=== PATIENT | female | born 1930 | race Caucasian/White ===

== ENCOUNTER 2016-08-27 14:38 | Emergency (ER) | payer OTHER, MEDICARE ==
[2016-08-27 14:57] VITALS: BMI 21.2
--- NOTE | 2016-08-27 16:04 | PDOC ---
History of Present Illness - General Chief Complaint: Injury Stated Complaint: FALL Time Seen by Provider: 08/27/16 15:08 History Source: Patient Exam Limitations: No Limitations - History of Present Illness Initial Comments: 08/27/16 15:58 86y F hx of dementia, htn, paroxysmal afib, copd, polycythemiavera, anemia, dvt , presents s/p mechanical fall. The patient is an 85 year old female with a significant past medical history of early onset dementia, C. diff, HTN, paroxysmal atrial fibrillation, COPD, polycythemia vera, anemia, DVT, and ileostomy (in [address] Pinon), who presents with nausea and vomiting this morning. Patient states she woke up with chills this morning. She says she had a total of six episodes of vomiting, with the last episode in the ER. Patient says she started to have a runny nose and sore throat yesterday. She describes the abdominal pain as bloating with associated difficulty breathing. Denies flu shot, sick contacts, diaphoresis, chest pain, or fever. PCP: Dr. Jose Diop Past History - Past Medical History Allergies/Adverse Reactions: Allergies Allergy/AdvReac Type Severity Reaction Status Date / Time No Known Drug Allergies Allergy Verified 08/27/16 14:52 Home Medications: Ambulatory Orders Aspirin [ASA -] 81 mg PO DAILY 09/25/15 Bethanechol Chloride 25 mg PO BID 09/25/15 Diazepam [Valium] 5 mg PO DAILY 09/25/15 Gabapentin 0 mg PO BID 09/25/15 Hydroxyurea [Droxia] 200 mg PO DAILY 09/25/15 Lactobacillus Acidophilus [Bacid -] 1 each PO DAILY 09/25/15 Losartan Potassium 25 mg PO DAILY 09/25/15 Metoprolol Succinate [Toprol XL -] 50 mg PO BID 09/25/15 Oxycodone HCl/Acetaminophen [Oxycodone-Acetaminophen 10-325] 1 each PO HS Ranitidine HCl [Zantac] 150 mg PO BID 09/25/15 Anemia: No Asthma: No Cancer: No Cardiac Disorders: Yes (PALPITATIONS, PAFIB) CVA: No COPD: Yes CHF: Yes Dementia: Yes (early) Diabetes: No GI Disorders: Yes (cdiff) Disorders: No HTN: Yes Hypercholesterolemia: No Liver Disease: No Suicide Attempt (Hx): No Seizures: No Thyroid Disease: No - Surgical History Abdominal Surgery: Yes (PARTIAL COLECOMY WITH DIVERTICULOSIS, ILEOSTOMY) Appendectomy: No Cardiac Surgery: No Cholecystectomy: Yes Lung Surgery: Yes (lung biopsy) Neurologic Surgery: No Orthopedic Surgery: Yes (right hip surgery) - Immunization History Td Vaccination: Yes TDAP Vaccination: No Immunization Up to Date: Yes - Psycho/Social/Smoking Cessation Hx Anxiety: No Suicidal Ideation: No Smoking Status: No Smoking History: Former smoker Have you smoked in the past 12 months: No Number of Cigarettes Smoked Daily: 0 If you are a former smoker, when did you quit?: many years ago Information on smoking cessation initiated: No Hx Alcohol Use: No Drug/Substance Use Hx: No Substance Use Type: None Hx Substance Use Treatment: No *Physical Exam - Vital Signs Last Vital Signs Temp Pulse Resp BP Pulse Ox 98.2 F 83 16 181/71 97 08/27/16 14:52 08/27/16 14:52 08/27/16 14:52 08/27/16 14:52 08/27/16 14:52
[2016-08-27] MEDS ORDERED: ACETAMINOPHEN 1000 MG/100 ML VIAL (NON FORMULARY) IVPB ONE (16:53)
[2016-08-27] MEDS ORDERED: DIPHTH,PERTUSS(ACELL),TET 0.5 ML DISP.SYRIN IM ONE (16:53)
--- NOTE | 2016-08-27 17:16 | PDOC ---
History of Present Illness - General History Source: Patient, Family (Daughter), Old Records Exam Limitations: No Limitations - History of Present Illness Initial Comments: 08/27/16 19:18 The patient is an 86 year old female, with a significant past medical history of anemia, HTN, Afib, COPD, polycythemia vera, DVT, C.difficile s/p ileostomy, chronic back pain and early onset dementia, who presents to the emergency department s/p a mechanical fall at approximately 1:30 PM this afternoon. The patient states that she fell while getting up from the couch this afternoon. The patient states that she fell forward onto her knees. She states that she did hit her head when she fell and did lose consciousness but she cannot say how long she was on the floor. However, she states that she remembers all events before and after she fell. After regaining consciousness, she called her daughter who brought her straight to the ED. Upon arrival to the ED, the patient presents with head pain, neck pain, right hip pain, and abrasions to the knees, bilaterally. The patient denies fever, chills, dizziness, shortness of breath, chest pain, nausea or vomiting. Last Tetanus is unknown. Patients daughter is at the bedside. The patient uses a walker to ambulate. Allergies: None reported. Past Surgical History: Partial Colectomy w/ Diverticulosis, Ileostomy, Lung Biopsy, Right Hip Surgery Social History: Former smoker (quit many years ago). Denies alcohol or drug use. PCP: Dr. Diop <Evonne Calloway - Last Filed: 08/27/16 19:30> - General History Source: Patient, Family, Old Records Exam Limitations: No Limitations <Link Haque - Last Filed: 08/27/16 20:19> - General Chief Complaint: Injury Stated Complaint: FALL Time Seen by Provider: 08/27/16 15:08 Past History <Evonne Calloway - Last Filed: 08/27/16 19:30> - Past Medical History Anemia: No Asthma: No Cancer: No Cardiac Disorders: Yes (PALPITATIONS, PAFIB) CVA: No COPD: Yes CHF: Yes Dementia: Yes (early) Diabetes: No GI Disorders: Yes (cdiff) Disorders: No HTN: Yes Hypercholesterolemia: No Liver Disease: No Suicide Attempt (Hx): No Seizures: No Thyroid Disease: No - Surgical History Abdominal Surgery: Yes (PARTIAL COLECOMY WITH DIVERTICULOSIS, ILEOSTOMY) Appendectomy: No Cardiac Surgery: No Cholecystectomy: Yes Lung Surgery: Yes (lung biopsy) Neurologic Surgery: No Orthopedic Surgery: Yes (right hip surgery) - Immunization History Td Vaccination: Yes TDAP Vaccination: No Immunization Up to Date: Yes - Psycho/Social/Smoking Cessation Hx Anxiety: No Suicidal Ideation: No Smoking Status: No Smoking History: Former smoker Have you smoked in the past 12 months: No Number of Cigarettes Smoked Daily: 0 If you are a former smoker, when did you quit?: many years ago Information on smoking cessation initiated: No Hx Alcohol Use: No Drug/Substance Use Hx: No Substance Use Type: None Hx Substance Use Treatment: No <Link Haque - Last Filed: 08/27/16 20:19> - Past Medical History Allergies/Adverse Reactions: Allergies Allergy/AdvReac Type Severity Reaction Status Date / Time No Known Drug Allergies Allergy Verified 08/27/16 14:52 Home Medications: Ambulatory Orders Aspirin [ASA -] 81 mg PO ASDIR 08/27/16 Bethanechol Chloride 25 mg PO BID 08/27/16 Diazepam [Valium] 5 mg PO HS 08/27/16 Lactobacillus Acidophilus [Bacid -] 1 each PO BID 08/27/16 Metoprolol Tartrate 50 mg PO BID 08/27/16 Oxycodone HCl 5 mg PO HS 08/27/16 Review of Systems - Review of Systems Able to Perform ROS?: Yes Comments:: 08/27/16 19:19 GENERAL/CONSTITUTIONAL: No fever or chills. No weakness. HEAD, EYES, EARS, NOSE AND THROAT: No change in vision. No ear pain or discharge. No sore throat. CARDIOVASCULAR: No chest pain or shortness of breath. RESPIRATORY: No cough, wheezing, or hemoptysis. GASTROINTESTINAL: No nausea, vomiting, diarrhea or constipation. GENITOURINARY: No dysuria, frequency, or change in urination. MUSCULOSKELETAL: +Head pain, neck pain, right hip pain. No muscle swelling or pain. No back pain. SKIN: +Bilateral knee abrasions/skin tears. No rash. NEUROLOGIC: No headache, vertigo, loss of consciousness, or change in strength/ sensation. ENDOCRINE: No increased thirst. No abnormal weight change. HEMATOLOGIC/LYMPHATIC: No anemia, easy bleeding, or history of blood clots. ALLERGIC/IMMUNOLOGIC: No hives or skin allergy. <Evonne Calloway - Last Filed: 08/27/16 19:30> *Physical Exam - Vital Signs Last Vital Signs Temp Pulse Resp BP Pulse Ox 98.2 F 83 16 181/71 97 08/27/16 14:52 08/27/16 14:52 08/27/16 14:52 08/27/16 14:52 08/27/16 14:52 - Physical Exam Comments: 08/27/16 19:26 GENERAL: Awake, alert, and fully oriented, in no acute distress. HEAD: No signs of trauma. EYES: PERRLA, EOMI, sclera anicteric, conjunctiva clear. ENT: Auricles normal inspection, hearing grossly normal, nares patent, oropharynx clear without exudates. Moist mucosa. NECK: C6 tenderness on palpation, no step offs. Normal ROM, supple, no lymphadenopathy, JVD, or masses. LUNGS: Breath sounds equal, clear to auscultation bilaterally. No wheezes, and no crackles. HEART: Regular rate and rhythm, normal S1 and S2, no murmurs, rubs or gallops. ABDOMEN: Ostomy present in the RLQ, mildly tender. Soft, normoactive bowel sounds. No guarding, no rebound. No masses. EXTREMITIES: Right hip tenderness, but can internally and externally rotate. DP pulses intact. Normal range of motion, no edema. No clubbing or cyanosis. No cords, no erythema. NEUROLOGICAL: Cranial nerves II through XII intact. Strength is 5/5 in both upper and lower extremities bilaterally. Sensations intact throughout. Unremarkable cerebellar signs. Normal speech, gait is deferred. SKIN: Significant abrasions of the knees, bilaterally. Right knee, there is an 8 cm x 10 cm large skin tear. Left knee, there is a large abrasion with a skin tear, approximately 8 cm x 8 cm which extends into subcutaneous fat but no tendon exposure. Warm, dry, normal turgor. <Evonne Calloway - Last Filed: 08/27/16 19:30> - Vital Signs Last Vital Signs Temp Pulse Resp BP Pulse Ox 98.2 F 83 16 181/71 97 08/27/16 14:52 08/27/16 14:52 08/27/16 14:52 08/27/16 14:52 08/27/16 14:52 <Link Haque - Last Filed: 08/27/16 20:19> Heart Score/ECG Review #1 ECG reviewed & interpreted by me at: 16:45 08/27/16 17:43 NSR 86 with 1st degree AV block 200 msec, normal axis, no std/juana, mildly peaked T waves V3-V6, QTC 409 msec <Link Haque - Last Filed: 08/27/16 20:19> ED Treatment Course - LABORATORY CBC & Chemistry Diagram: 08/27/16 17:03 08/27/16 17:03 - ADDITIONAL ORDERS Additional order review: 08/27/16 17:03 RBC 4.01 D MCV 111.2 H MCHC 31.5 L RDW 15.2 MPV 9.8 D Neutrophils % 81.4 Lymphocytes % 9.1 D Monocytes % 5.9 Eosinophils % 2.2 Basophils % 1.4 <Evonne Calloway - Last Filed: 08/27/16 19:30> - LABORATORY CBC & Chemistry Diagram: 08/27/16 17:03 08/27/16 17:03 - RADIOLOGY Radiology Studies Ordered: Category Date Time Status ABDOMEN & PELVIS CT W/O CONTR [CT] Stat CT Scan 08/27/16 16:[address] W/O CONTR [CT] Stat CT Scan 08/27/16 16:[address] WITHOUT CONTRAST [CT] Stat CT Scan 08/27/16 16:53 Ordered KNEE 3 POS-LEFT [RAD] Stat Radiology 08/27/16 16:53 Ordered KNEE 3 POS-RIGHT [RAD] Stat Radiology 08/27/16 16:53 Ordered <Link Haque - Last Filed: 08/27/16 20:19> Medical Decision Making - Medical Decision Making 08/27/16 19:30 EXAM: RAD/ KNEE 3 POS-LEFT ; RAD/KNEE 3 POS-RIGHT Reviewed By: Dr. Omar Kulkarni IMPRESSION: Moderate degenerative arthritis with no fracture or acute bone or joint abnormalities. EXAM: CT/HEAD CT WITHOUT CONTRAST Reviewed By: Dr. Omar Kulkarni IMPRESSION: No evidence of acute intracranial pathology. EXAM: CT/CERVICAL SPINE CT W/O CONTRAST Reviewed By: Dr. Omar Kulkarni IMPRESSION: Moderately severe degenerative arthritis with no fracture or acute pathology. EXAM: CT/ABDOMEN & PELVIS CT W/O CONTRAST Reviewed By: Dr. Omar Kulkarni IMPRESSION: Limited study but no evidence of acute pathology within the abdomen or pelvis. <Evonne Calloway - Last Filed: 08/27/16 19:30> - Medical Decision Making 08/27/16 17:16 A portion of this note was documented by scribe services under my direction. I have reviewed the details of the note, within reason, and agree with the documentation with the following case summary and management plan written by me. Patient treated in the ED. Nursing notes are reviewed and incorporated into the medical decision-making. Vital signs reviewed. Peripheral IV access obtained by the nurse, laboratory studies are drawn and sent, reviewed and interpreted by myself. Vital Signs Temp Pulse Resp BP Pulse Ox 98.2 F 83 16 181/71 97 08/27/16 14:52 08/27/16 14:52 08/27/16 14:52 08/27/16 14:52 08/27/16 14:52 86 year old female with past medical history of early onset dementia, C. difficile status post ileostomy, hypertension, atrial fibrillation, COPD, polycythemia vera, anemia, DVT, right hip pins presents to the emergency department for mechanical fall. The patient was attempting to get up from the couch but fell onto her knees and hit her head. She had a brief loss of consciousness and complains about cervical spine and posterior head pain. Denies any nausea or vomiting. She takes baby aspirin twice a week. Patient has sustained a significant amount of abrasion secondary to carpet on the bilateral knees. She will need skin tears to be debrided and potentially sutures in the left knee. We'll update her tetanus. We'll perform a CAT scan the head and cervical spine as she fails Hait[place] head CT and Nexus criteria. We'll obtain bilateral knee x-rays. The patient is complain about right hip pain though she can internally and externally rotate. She is neurovascularly intact. She also has pain around her ostomy site. We'll obtain a dry abdomen pelvis CAT scan to look for underlying injuries and bilateral knee x-rays. 08/27/16 20:18 CBC, BMP 08/27/16 17:03 08/27/16 17:03 CMP Sodium Cancelled 08/27/16 17:03 Potassium Cancelled 08/27/16 17:03 Chloride Cancelled 08/27/16 17:03 Carbon Dioxide Cancelled 08/27/16 17:03 Anion Gap Cancelled 08/27/16 17:03 BUN Cancelled 08/27/16 17:03 Creatinine Cancelled 08/27/16 17:03 Creat Clearance w eGFR Cancelled 08/27/16 17:03 Random Glucose Cancelled 08/27/16 17:03 Calcium Cancelled 08/27/16 17:03 Total Bilirubin Cancelled 08/27/16 17:03 AST Cancelled 08/27/16 17:03 ALT Cancelled 08/27/16 17:03 Alkaline Phosphatase Cancelled 08/27/16 17:03 Total Protein Cancelled 08/27/16 17:03 Albumin Cancelled 08/27/16 17:03 Urine Test Results Urine Color Colorless 08/27/16 19:09 Urine Appearance Clear 08/27/16 19:09 Urine pH 5.0 (5.0-8.0) 08/27/16 19:09 Ur Specific [place] 1.006 (1.001-1.035) 08/27/16 19:09 Urine Protein Negative (NEGATIVE) 08/27/16 19:09 Urine Glucose (UA) Negative (NEGATIVE) 08/27/16 19:09 Urine Ketones Negative (NEGATIVE) 08/27/16 19:09 Urine Blood Negative (NEGATIVE) 08/27/16 19:09 Urine Nitrite Negative (NEGATIVE) 08/27/16 19:09 Urine Bilirubin Negative (NEGATIVE) 08/27/16 19:09 Ur Leukocyte Esterase Negative (NEGATIVE) 08/27/16 19:09 CT and xrays reviewed. NO acute findings. The wound was irrigated extensively. There were skin tears that were excised given that they could not be sutured. Bacitracin was applied and covered with Xeroform and with Kerlix. Wound discharge care was given to the daughter. I instructed the patient that if she develops any fever, redness or signs of infection, that she is to return to the ER immediately. I advised him to follow- up with her primary care doctor in 2 days for wound check. Patient verbalizes understanding agrees with plan. I discussed the physical exam findings, ancillary test results and final diagnoses with the patient. I answered all of the patient's questions. The patient was satisfied with the care received and felt comfortable with the discharge plan and treatment plan. The patient will call their primary care physician within 24 hours to arrange follow-up and will return to the Emergency Department with any new, persistant or worsening symptoms. <Link Haque - Last Filed: 08/27/16 20:19> *DC/Admit/Observation/Transfer - Attestations Scribe Attestion: 08/27/16 17:59 Documentation prepared by Evonne Calloway, acting as biomedical equipment specialist for Link Haque MD. <Evonne Calloway - Last Filed: 08/27/16 19:30> - Discharge Dispostion Admit: No <Link Haque - Last Filed: 08/27/16 20:19> Diagnosis at time of Disposition: Fall Qualifiers: Encounter type: initial encounter Qualified Code(s): W19.XXXA - Unspecified fall, initial encounter - Discharge Dispostion Disposition: HOME Condition at time of disposition: Stable - Referrals Referrals: Jose Diop MD [Primary Care Provider] - - Patient Instructions Printed Discharge Instructions: How to Prevent Falls, DI for Abrasion Additional Instructions: Please apply a thin layer of bacitracin, and cover with xeroform (petroleum based gauze) and wrap with kerlex. Elevate the legs as much as you can to help with the swelling. Take 650 mg tylenol every 4 hours as needed for pain. If you notice any redness, pus, or fever, please return to the ER for further evaluaiton. Please see Dr. Diop this Tuesday.
[2016-08-27 17:45] LABS: BASOPHIL 1.4 % (0-2.0); EOSINOPHIL 2.2 % (0-4.5); MCHC 31.5 g/dl (32.0-36.0); MEAN CELL VOLUME 111.2 fl (80-96); MEAN PLT VOLUME 9.8 fl (7.5-11.1); NEUTROPHILS 81.4 % (42.8-82.8); PLATELET COUNT 201 K/MM3 (134-434); RDW 15.2 % (11.6-15.6); WHITE BLOOD COUNT 9.8 K/mm3 (4.0-10.0)
[2016-08-27 18:21] LABS: INR 0.96 (0.82-1.09); PROTHROMBIN TIME (PATIENT) 10.5 SEC (9.98-11.88)
[2016-08-27 19:33] LABS: URINE APPEARANCE CLEAR; URINE BILIRUBIN NEGATIVE (NEGATIVE); URINE BLOOD NEGATIVE (NEGATIVE); URINE COLOR COLORLESS; URINE GLUCOSE (UA) NEGATIVE (NEGATIVE); URINE KETONE NEGATIVE (NEGATIVE); URINE LEUK ESTERASE NEGATIVE (NEGATIVE); URINE NITRITE NEGATIVE (NEGATIVE); URINE PROTEIN NEGATIVE (NEGATIVE); URINE UROBILINOGEN NEGATIVE E.U./dl (0.2-1.0)
[2016-08-27 19:44] LABS: ANISOCYTOSIS 3+; PLATELET COMMENT2 NO CLOTTING DETECTED; PLATELET COMMENT3 FEW LARGE PLTS; PLATELET ESTIMATE ADEQUATE (NORMAL)
[2016-08-27 19:54] VITALS: BP 143/59; PULSE 90; TEMP 98.1
--- NOTE | 2016-08-28 09:28 | EKG ---
Test Reason : Blood Pressure : / mmHG Vent. Rate : 086 BPM Atrial Rate : 086 BPM P-R Int : 200 ms QRS Dur : 074 ms QT Int : 342 ms P-R-T Axes : 078 057 065 degrees QTc Int : 409 ms NORMAL SINUS RHYTHM PEAKED T WAVES, clinical correlation required WHEN COMPARED WITH ECG OF 25-SEP-2015 14:12, NO SIGNIFICANT CHANGE WAS FOUND Confirmed by MELANIE NAVA MD ([id number]) on 08/28/2016 9:27:53 AM Referred By: Confirmed By:MELANIE NAVA MD
== END 2016-08-27 20:57 | disposition home or self-care (01) ==
LOC: JER 14:38
PROC: 3E033NZ Introduction of Analgesics, Hypnotics, Sedatives into Peripheral Vein, Percutaneous Approach (ICD-10-PCS; principal; 2016-08-27)
PROC: 3E0234Z Introduction of Serum, Toxoid and Vaccine into Muscle, Percutaneous Approach (ICD-10-PCS; 2016-08-27)
DX: Z04.3 Encounter for examination and observation following other accident (principal); W18.39XA Other fall on same level, initial encounter; Y93.89 Activity, other specified; Y92.008 Other place in unspecified non-institutional (private) residence as the place of occurrence of the external cause; I10 Essential (primary) hypertension; J44.9 Chronic obstructive pulmonary disease, unspecified; D45 Polycythemia vera; I48.91 Unspecified atrial fibrillation
CPT/HCPCS: 36415; 70450-TC; 72125-TC; 73562-TC-LT; 73562-TC-RT; 74176-TC; 81003; 85025; 85610; 90471; 90715; 93005; 93010; 96374; 99284-25

== ENCOUNTER 2017-01-03 17:26 | Emergency (ER) | payer OTHER, MEDICARE ==
[2017-01-03 18:29] VITALS: BP 200/73; PULSE 89; TEMP 98; BMI 21.2
[2017-01-03] MEDS ORDERED: oxyCODONE HCL 5 MG TABLET PO ONE (19:29)
[2017-01-03] MEDS ORDERED: oxyCODONE HCL 5 MG TABLET ONE (19:33)
--- NOTE | 2017-01-03 19:35 | PDOC ---
History of Present Illness - General History Source: Patient, Family, Old Records Exam Limitations: No Limitations <Link Haque - Last Filed: 01/03/17 19:35> - General History Source: Patient Exam Limitations: No Limitations - History of Present Illness Initial Comments: 01/03/17 19:38 The patient is an 86 year old female with a significant past medical history of chronic back pain, anemia, HTN, afib, COPD, polycythemia vera, DVT, and C. diff s/p ileostomy, who presents to the ER with progressively worsening back pain. Patient states she takes one 5mg of oxycodone at night for back pain. Patient reports that she has recently had worse generalized back pain, with onset in the morning and persisting throughout the day. Patient rates the back pain at 7/ 10 on interview. Patient says she also had one episode of vomiting today. As per daughter, patient alerted EMS today when she was alone. Patient previously used lidoderm patches and had steroid injections for back pain, with incomplete relief of symptoms. Patient reports her next appointment with Dr. Diop is on . Denies any exacerbating or alleviating factors Denies fever, chills Denies hematemesis Denies weakness Denies trauma PCP: Dr. Diop <Patti Bazzi - Last Filed: 01/03/17 19:41> - General Chief Complaint: Back Pain Stated Complaint: BACK PAIN Time Seen by Provider: 01/03/17 19:11 Past History - Past Medical History Anemia: No Asthma: No Cancer: No Cardiac Disorders: Yes (PALPITATIONS, PAFIB) CVA: No COPD: Yes CHF: Yes Dementia: Yes (early) Diabetes: No GI Disorders: Yes (cdiff) Disorders: No HTN: Yes Hypercholesterolemia: No Liver Disease: No Suicide Attempt (Hx): No Seizures: No Thyroid Disease: No - Surgical History Abdominal Surgery: Yes (PARTIAL COLECOMY WITH DIVERTICULOSIS, ILEOSTOMY) Appendectomy: No Cardiac Surgery: No Cholecystectomy: Yes Lung Surgery: Yes (lung biopsy) Neurologic Surgery: No Orthopedic Surgery: Yes (right hip surgery) - Immunization History Td Vaccination: Yes TDAP Vaccination: No Immunization Up to Date: Yes - Psycho/Social/Smoking Cessation Hx Anxiety: No Suicidal Ideation: No Smoking Status: No Smoking History: Former smoker Have you smoked in the past 12 months: No Number of Cigarettes Smoked Daily: 0 If you are a former smoker, when did you quit?: many years ago Information on smoking cessation initiated: No Hx Alcohol Use: No Drug/Substance Use Hx: No Substance Use Type: None Hx Substance Use Treatment: No <Link Haque - Last Filed: 01/03/17 19:35> <Patti Bazzi - Last Filed: 01/03/17 19:41> - Past Medical History Allergies/Adverse Reactions: Allergies Allergy/AdvReac Type Severity Reaction Status Date / Time No Known Drug Allergies Allergy Verified 01/03/17 18:01 Home Medications: Ambulatory Orders Aspirin [ASA -] 81 mg PO ASDIR 08/27/16 Bethanechol Chloride 25 mg PO BID 08/27/16 Diazepam [Valium] 5 mg PO HS 08/27/16 Lactobacillus Acidophilus [Bacid -] 1 each PO BID 08/27/16 Metoprolol Tartrate 50 mg PO BID 08/27/16 Oxycodone HCl 5 mg PO HS 08/27/16 Oxycodone HCl 5 mg PO BID PRN #10 tablet MDD 2 01/03/17 Review of Systems - Review of Systems Able to Perform ROS?: Yes Comments:: 01/03/17 19:38 GENERAL/CONSTITUTIONAL: No fever or chills. No weakness. HEAD, EYES, EARS, NOSE AND THROAT: No change in vision. No ear pain or discharge. No sore throat. CARDIOVASCULAR: No chest pain or shortness of breath. RESPIRATORY: No cough, wheezing, or hemoptysis. GASTROINTESTINAL: (+) vomiting. No diarrhea or constipation. GENITOURINARY: No dysuria, frequency, or change in urination. MUSCULOSKELETAL: (+) back pain. No joint or muscle swelling or pain. No neck pain. SKIN: No rash NEUROLOGIC: No headache, vertigo, loss of consciousness, or change in strength/ sensation. ENDOCRINE: No increased thirst. No abnormal weight change. HEMATOLOGIC/LYMPHATIC: No anemia, easy bleeding, or history of blood clots. ALLERGIC/IMMUNOLOGIC: No hives or skin allergy. <Patti Bazzi - Last Filed: 01/03/17 19:41> *Physical Exam - Vital Signs Last Vital Signs Temp Pulse Resp BP Pulse Ox 98 F 89 18 200/73 97 01/03/17 17:55 01/03/17 17:55 01/03/17 17:55 01/03/17 17:55 01/03/17 17:55 <Link Haque - Last Filed: 01/03/17 19:35> - Vital Signs Last Vital Signs Temp Pulse Resp BP Pulse Ox 98 F 89 18 200/73 97 01/03/17 17:55 01/03/17 17:55 01/03/17 17:55 01/03/17 17:55 01/03/17 17:55 - Physical Exam Comments: 01/03/17 19:38 GENERAL: Awake, alert, and fully oriented, in no acute distress HEAD: No signs of trauma EYES: PERRLA, EOMI, sclera anicteric, conjunctiva clear ENT: Auricles normal inspection, hearing grossly normal, nares patent, oropharynx clear without exudates. Moist mucosa NECK: Normal ROM, supple, no lymphadenopathy, JVD, or masses LUNGS: Breath sounds equal, clear to auscultation bilaterally. No wheezes, and no crackles HEART: Regular rate and rhythm, normal S1 and S2, no murmurs, rubs or gallops ABDOMEN: Ileostomy bag on the abdomen. Soft, nontender, normoactive bowel sounds. No guarding, no rebound. No masses EXTREMITIES: Chronic back pain. Normal range of motion, no edema. No clubbing or cyanosis. No cords, erythema, or tenderness NEUROLOGICAL: Cranial nerves II through XII grossly intact. Normal speech, normal gait SKIN: Warm, Dry, normal turgor, no rashes or lesions noted. <Uts,Patti - Last Filed: 01/03/17 19:41> ED Treatment Course - Medications Given in the ED: ED Medications Discontinued Medications Generic Name Dose Route Start Last Admin Trade Name Freq PRN Reason Stop Dose Admin Oxycodone HCl 5 mg 01/03/17 19:29 01/03/17 19:36 Roxicodone - PO 01/03/17 19:30 Not Given ONCE ONE <Uts,Patti - Last Filed: 01/03/17 19:41> Medical Decision Making - Medical Decision Making 01/03/17 19:32 A portion of this note was documented by scribe services under my direction. I have reviewed the details of the note, within reason, and agree with the documentation with the following case summary and management plan written by me. Patient treated in the ED. Nursing notes are reviewed and incorporated into the medical decision-making. Vital signs reviewed. Peripheral IV access obtained by the nurse, laboratory studies are drawn and sent, reviewed and interpreted by myself. Vital Signs Temp Pulse Resp BP Pulse Ox 98 F 89 18 200/73 97 01/03/17 17:55 01/03/17 17:55 01/03/17 17:55 01/03/17 17:55 01/03/17 17:55 86 ear old female with past medical history of anemia, hypertension, atrial fibrillation, COPD, positive air, DVT, C. difficile status post ileostomy, chronic back pain, early onset dementia presents with back pain. Patient has chronic back pain. She was home alone and was scared and called 911 because of her back pain which he typically takes oxycodone and acetaminophen at nighttime. Patient's daughter was on home surgical 911. This is her chronic back pain. Last week, patient did a similar incident where the patient's daughter was not at home and she called [place] police department. Patient reports that this is likely like her prior back pain. Denies other symptoms. She has appointment with Dr. Diop next week. We'll discharge with a small prescription of oxycodone. Patient's daughter will bring the patient home. Return precautions given. Discharge diagnosis: Chronic back pain I discussed the physical exam findings, ancillary test results and final diagnoses with the patient. I answered all of the patient's questions. The patient was satisfied with the care received and felt comfortable with the discharge plan and treatment plan. The patient will call their primary care physician within 24 hours to arrange follow-up and will return to the Emergency Department with any new, persistant or worsening symptoms. <Link Haque - Last Filed: 01/03/17 19:35> *DC/Admit/Observation/Transfer - Discharge Dispostion Admit: No <Link Haque - Last Filed: 01/03/17 19:35> - Attestations Scribe Attestion: 01/03/17 19:39 Documentation prepared by Patti Bazzi, acting as medical secretary for Link Haque MD. <Patti Bazzi - Last Filed: 01/03/17 19:41> Diagnosis at time of Disposition: Chronic back pain Qualifiers: Back pain location: back pain in unspecified location Back pain laterality: unspecified Qualified Code(s): M54.9 - Dorsalgia, unspecified - Discharge Dispostion Disposition: HOME Condition at time of disposition: Stable - Prescriptions Prescriptions: Oxycodone HCl 5 mg PO BID PRN #10 tablet MDD 2 PRN Reason: Back Pain - Referrals Referrals: Jose Diop MD [Primary Care Provider] - - Patient Instructions Printed Discharge Instructions: Managing Chronic Low Back Pain, Back Pain ( Alternative Therapy) Additional Instructions: I have written a prescription of oxycodone for you at the pharmacy. Please take it as needed. Follow up with DR. Diop.
== END 2017-01-03 19:42 | disposition home or self-care (01) ==
LOC: JER 17:26
DX: M54.89 Other dorsalgia (principal); G89.29 Other chronic pain; R00.2 Palpitations; I48.0 Paroxysmal atrial fibrillation; Z79.01 Long term (current) use of anticoagulants; I50.9 Heart failure, unspecified; I10 Essential (primary) hypertension; J44.9 Chronic obstructive pulmonary disease, unspecified; Z93.2 Ileostomy status; D45 Polycythemia vera; Z86.718 Personal history of other venous thrombosis and embolism; Z86.19 Personal history of other infectious and parasitic diseases
CPT/HCPCS: 99281-25

== ENCOUNTER 2017-05-18 16:53 | Observation (INO) | payer OTHER, MEDICARE ==
--- NOTE | 2017-05-18 17:01 | PDOC ---
History of Present Illness - General Chief Complaint: Lightheaded Stated Complaint: RECTAL PAIN Time Seen by Provider: 05/18/17 16:58 History Source: Patient Exam Limitations: Dementia - History of Present Illness Initial Comments: 05/18/17 17:02 The patient is an 86 year old female with a significant past medical history of chronic back pain, anemia, HTN, afib, COPD, polycythemia vera, DVT, and C. diff s/p ileostomy, who presents to the ER with confusion, rectal discomfort and back pain. Also complains of pain on urination. No abd pain, hematuria, hematochezia, abdominal pain. 05/18/17 18:56 05/18/17 19:04 Past History - Past Medical History Allergies/Adverse Reactions: Allergies Allergy/AdvReac Type Severity Reaction Status Date / Time No Known Drug Allergies Allergy Verified 05/18/17 19:10 Home Medications: Ambulatory Orders Unobtainable [Unobtainable] 05/18/17 Anemia: No Asthma: No Cancer: No Cardiac Disorders: Yes (PALPITATIONS, PAFIB) CVA: No COPD: Yes CHF: Yes Dementia: Yes (early) Diabetes: No GI Disorders: Yes (cdiff) Disorders: No HTN: Yes Hypercholesterolemia: No Liver Disease: No Seizures: No Thyroid Disease: No - Surgical History Abdominal Surgery: Yes (PARTIAL COLECOMY WITH DIVERTICULOSIS, ILEOSTOMY) Appendectomy: No Cardiac Surgery: No Cholecystectomy: Yes Lung Surgery: Yes (lung biopsy) Neurologic Surgery: No Orthopedic Surgery: Yes (right hip surgery) - Immunization History Td Vaccination: Yes TDAP Vaccination: No Immunization Up to Date: Yes - Suicide/Smoking/Psychosocial Hx Smoking Status: No Smoking History: Former smoker Have you smoked in the past 12 months: No Number of Cigarettes Smoked Daily: 0 If you are a former smoker, when did you quit?: many years ago Information on smoking cessation initiated: No Hx Alcohol Use: No Drug/Substance Use Hx: No Substance Use Type: None Hx Substance Use Treatment: No Review of Systems - Review of Systems Able to Perform ROS?: Yes (despite delium) Is the patient limited Hungarian proficient: No Constitutional: Yes: Weakness HEENTM: No: Symptoms Reported Respiratory: No: Symptoms reported Cardiac (ROS): No: Symptoms Reported ABD/GI: Yes: Constipated, Other (rectal discomfort) : Yes: Burning, Dysuria Musculoskeletal: Yes: Back Pain *Physical Exam - Vital Signs Last Vital Signs Temp Pulse Resp BP Pulse Ox 98.7 F 79 20 188/71 97 05/18/17 16:57 05/18/17 16:57 05/18/17 16:57 05/18/17 16:57 05/18/17 16:57 - Physical Exam General Appearance: Yes: Thin. No: Apparent Distress HEENT: positive: EOMI, VIRGILIO, Normal ENT Inspection Neck: positive: Trachea midline. negative: Tender Respiratory/Chest: positive: Lungs Clear, Normal Breath Sounds. negative: Chest Tender Cardiovascular: positive: Regular Rhythm, Regular Rate, S1, S2 Gastrointestinal/Abdominal: positive: Other (colostomy bag, some greenish/ brownish stools) Musculoskeletal: positive: Normal Inspection, Other (Surgical Scar on right mid to low back along rib) Integumentary: positive: Diaphoresis, Other. negative: Moist Neurologic: positive: Other (patient seems altered, dementia vs delirium). negative: Fully Oriented ED Treatment Course - LABORATORY CBC & Chemistry Diagram: 05/18/17 17:30 05/18/17 17:30 Medical Decision Making - Medical Decision Making 05/18/17 19:04 The patient is an 86 year old female with a significant past medical history of chronic back pain, anemia, HTN, afib, COPD, polycythemia vera, DVT, and C. diff s/p ileostomy, who presents to the ER with confusion, rectal discomfort and back pain. Altered mental status + diaphoresis + complains of dysuria + old age + inspiratory discomfort + tachycardia Suspecting infectious process: Pulmomnary embolism UTI vs Pneumonia.vs sepsis labs and UA pending. CXR pending CTA pending 05/18/17 19:17 Patient signed out to Dr. Rousseau *DC/Admit/Observation/Transfer Diagnosis at time of Disposition: Altered mental status
[2017-05-18 17:42] LABS: BASOPHIL 1.4 % (0-2.0); EOSINOPHIL 2.1 % (0-4.5); MCH 34.9 pg (25.7-33.7); MEAN CELL VOLUME 109.3 fl (80-96); MEAN PLT VOLUME 8.9 fl (7.5-11.1); NEUTROPHILS 80.3 % (42.8-82.8); PLATELET COUNT 236 K/MM3 (134-434); RDW 14.6 % (11.6-15.6)
[2017-05-18 18:15] LABS: URINE APPEARANCE CLOUDY; URINE BILIRUBIN NEGATIVE (NEGATIVE); URINE BLOOD 2+ (NEGATIVE); URINE COLOR YELLOW; URINE GLUCOSE (UA) NEGATIVE (NEGATIVE); URINE KETONE NEGATIVE (NEGATIVE); URINE NITRITE NEGATIVE (NEGATIVE); URINE PROTEIN NEGATIVE (NEGATIVE); URINE UROBILINOGEN NEGATIVE mg/dL (0.2-1.0)
[2017-05-18 18:40] LABS: URINE MUCUS RARE; URINE RBC 25 /hpf (0-3); URINE WBC 1 /hpf (3-5)
--- NOTE | 2017-05-18 19:09 | PDOC ---
Attending Attestation - Resident Resident Name: Merlin Menjivar - ED Attending Attestation I have performed the following: I have examined & evaluated the patient, The case was reviewed & discussed with the resident, I agree w/resident's findings & plan, Exceptions are as noted - HPI HPI: 05/18/17 19:16 87 F with chronic back pain, anemia, HTN, afib, COPD, polycythemia vera, DVT, and C. diff s/p ileostomy, presenting to ER with rectal pain. Pt states that she has had this pain intermittently for years since her ileostomy. Pt denies any F/C. Endorses occasional abdominal pain. She states that she occasionally passes small stools from her rectum despite her ileostomy but denies any changes. Denies any BRBPR. Denies N/V. Denies change in ostomy output. Denies CP /SOB. Denies dysuria. - Physicial Exam PE: 05/18/17 19:19 "GENERAL: Awake, alert, and fully oriented, in no acute distress HEAD: No signs of trauma EYES: PERRLA, EOMI, sclera anicteric, conjunctiva clear ENT: Auricles normal inspection, hearing grossly normal, nares patent, oropharynx clear without exudates. Moist mucosa NECK: Nontender, no stepoffs, Normal ROM, supple, no lymphadenopathy, JVD, or masses LUNGS: Breath sounds equal, clear to auscultation bilaterally. No wheezes, and no crackles HEART: Regular rate and rhythm, normal S1 and S2, no murmurs, rubs or gallops ABDOMEN: Soft, nontender, normoactive bowel sounds. ileostomy site clean, nontender, brown stool in bag. No guarding, no rebound. No masses RECTAL: no hemorrhoids or lesions, mild tenderness on rectal exam, no stool in vault EXTREMITIES: Normal range of motion, no edema. No clubbing or cyanosis. No cords, erythema, or tenderness NEUROLOGICAL: Cranial nerves II through XII intact. 5/5 strength and sensation in all extremities, Normal speech, normal gait SKIN: Warm, Dry, normal turgor, no rashes or lesions noted. " - Medical Decision Making 05/18/17 19:20 87 F with intermittent abdominal pain and rectal pain. Has h/o c diff but no change in stool output. However, given report of abdominal pain, will obtain CT to r/o colitis. - Labs, UA - CTAP - reassess 05/18/17 19:32 Upon re-evaluation, pt now complaining of pain with deep inspiration. Pt mildly tachycardic to 100. Will obtain CTA to r/o PE. Trop to r/o VA. EKG. Will addmit for further work up. Pt signed out to night team, Drs. Chapin and Onelia. Dispo pending CTA, troponin, labwork. Case discussed in detail with oncoming Emergency Physician including history, physical exam and ancillary studies. Oncoming Emergency Physician has assumed care for the patient and will complete the evaluation and treatment. Patient is aware of the plan.
[2017-05-18 19:24] LABS: ANISOCYTOSIS 2+; MACROCYTOSIS 2+; PLATELET ESTIMATE ADEQUATE (NORMAL)
--- NOTE | 2017-05-18 19:25 | PDOC ---
*Physical Exam - Vital Signs Last Vital Signs Temp Pulse Resp BP Pulse Ox 98.7 F 79 20 188/71 97 05/18/17 16:57 05/18/17 16:57 05/18/17 16:57 05/18/17 16:57 05/18/17 16:57 - Physical Exam General Appearance: Yes: Nourished, Appropriately Dressed HEENT: positive: Normal Voice, Hearing Grossly Normal Respiratory/Chest: positive: Lungs Clear, Normal Breath Sounds. negative: Chest Tender Cardiovascular: positive: Regular Rhythm, Regular Rate, S1, S2. negative: Diastolic Murmur, Systolic Murmur Gastrointestinal/Abdominal: positive: Flat, Soft. negative: Tender Rectal Exam: positive: other (Stage 1 pressure ulcer, started superior to anus and extending to mid-labial folds; no break in skin; erythematous). negative: hemorrhoids Extremity: positive: Normal Inspection, Normal Range of Motion Integumentary: positive: Dry, Warm, Other (See rectal exam) Neurologic: positive: Alert, Normal Mood/Affect (per daughter) ED Treatment Course - LABORATORY CBC & Chemistry Diagram: 05/18/17 17:30 05/18/17 18:50 - ADDITIONAL ORDERS Additional order review: Laboratory Results 05/18/17 05/18/17 05/18/17 18:30 18:05 17:30 Sodium Cancelled Potassium Cancelled Chloride Cancelled Carbon Dioxide Cancelled Anion Gap Cancelled BUN Cancelled Creatinine Cancelled Creat Clearance w eGFR Cancelled Random Glucose Cancelled Lactic Acid 1.5 Calcium Cancelled Total Bilirubin Cancelled AST Cancelled ALT Cancelled Alkaline Phosphatase Cancelled Total Protein Cancelled Albumin Cancelled Urine Color Yellow Urine Appearance Cloudy Urine pH 5.0 Urine Protein Negative Urine Glucose (UA) Negative Urine Ketones Negative Urine Blood 2+ H Urine Nitrite Negative Urine Bilirubin Negative Urine Urobilinogen Negative Urine RBC 25 Urine WBC 1 Ur Epithelial Cells Rare Urine Mucus Rare 05/18/17 17:30 RBC 4.15 MCV 109.3 H MCHC 32.0 RDW 14.6 MPV 8.9 Neutrophils % 80.3 Lymphocytes % 10.1 Monocytes % 6.1 Eosinophils % 2.1 Basophils % 1.4 Medical Decision Making - Medical Decision Making 05/18/17 19:24 Patient signed out to me by Dr. Menjivar, day team. Patient is an 87F who presented with n/v and abdominal pain. Pending CT's. WBC count of 11. Will reassess when she returns from CT. 05/18/17 19:42 Abdomen is soft, nontender. Patient wants to see her daughters, seems altered. Patient also desires to eat. Pending CT reads. Stage 1 pressure ulcer will be treated with ointments. 05/18/17 20:21 Patient has no chest pain, is satting in the high 90's, and has no pleuritic CP or SOB. Will cancel CTA. 05/18/17 20:[address] Eaton who accepts admission for observation. *DC/Admit/Observation/Transfer Diagnosis at time of Disposition: UTI (urinary tract infection) Altered mental state Qualifiers: Altered mental status type: unspecified Qualified Code(s): R41.82 - Altered mental status, unspecified - Discharge Dispostion Condition at time of disposition: Stable Admit: Yes - Referrals Referrals: Jose Diop MD [Primary Care Provider] - - Patient Instructions - Post Discharge Activity
[2017-05-18 19:41] LABS: ALBUMIN 3.6 g/dl (3.4-5.0); ANION GAP 8 (8-16); CALCIUM 8.9 mg/dL (8.5-10.1); CO2 25 mmol/L (21-32); GLUCOSE,RANDOM 102 mg/dL (74-106)
[2017-05-18 19:44] LABS: ALK PHOS 81 U/L (45-117); BILIRUBIN,TOTAL 0.4 mg/dL (0.2-1.0); CREATININE 1.4 mg/dL (0.55-1.02); SGOT/AST 18 U/L (15-37); SGPT/ALT 18 U/L (12-78); TOT PROT 6.5 g/dl (6.4-8.2)
[2017-05-18 19:54] LABS: URINE LEUK ESTERASE 1+ (NEGATIVE)
[2017-05-18 20:12] LABS: CPK 37 IU/L (26-192); TROPONIN I < 0.02 ng/ml (0.00-0.05)
[2017-05-18] MEDS ORDERED: SULFAMETHOXAZOLE/TRIMETHOPRIM 800MG/160MG D.S. TABLET PO ONE (20:22)
[2017-05-18] MEDS ORDERED: SULFAMETHOXAZOLE/TRIMETHOPRIM 800MG/160MG D.S. TABLET ONE (20:28)
[2017-05-18 20:48] LABS: URINE APPEARANCE CLOUDY; URINE BILIRUBIN NEGATIVE (NEGATIVE); URINE BLOOD 1+ (NEGATIVE); URINE COLOR LTYELLOW; URINE GLUCOSE (UA) NEGATIVE (NEGATIVE); URINE KETONE NEGATIVE (NEGATIVE); URINE NITRITE NEGATIVE (NEGATIVE); URINE PROTEIN NEGATIVE (NEGATIVE); URINE UROBILINOGEN NEGATIVE mg/dL (0.2-1.0)
[2017-05-18] MEDS ORDERED: SULFAMETHOXAZOLE 80 MG/TRIMETHOPRIM 16 MG/ML VIAL IVPB ONE (20:48)
[2017-05-18 21:15] LABS: URINE BACTERIA RARE /hpf (NONE SEEN); URINE MUCUS RARE; URINE RBC 5 /hpf (0-3); URINE WBC 5 /hpf (3-5)
[2017-05-18] MEDS ORDERED: NYSTATIN POWDER 100,000 UNITS/GM - 15 GM TOPICAL POWDER TP ONE (21:41)
[2017-05-18] MEDS ORDERED: COD LIVER OIL/ZINC OXIDE PASTE 56 GM TUBE TP PRN (21:41)
[2017-05-18] MEDS: ZINC OXIDE/PETROLATUM,WHITE 1 APPLIC OINT...G. TP PRN (22:19)
[2017-05-18] MEDS ORDERED: diazePAM 5 MG TABLET PO ONE (22:42)
[2017-05-18] MEDS ORDERED: ONDANSETRON 4 MG/2 ML VIAL IVPUSH ONE (22:42)
[2017-05-18] MEDS ORDERED: diazePAM 5 MG TABLET ONE (22:42)
[2017-05-18] MEDS ORDERED: ONDANSETRON 4 MG/2 ML VIAL ONE (22:43)
[2017-05-18 22:46] LABS: URINE LEUK ESTERASE 1+ (NEGATIVE)
[2017-05-18] MEDS ORDERED: DEXTROSE 50%-WATER - 25 GM/50 ML VIAL IVPUSH ONE (23:17)
[2017-05-18] MEDS ORDERED: CALCIUM GLUCONATE 10% - 1,000 MG/10 ML VIAL IVPUSH ONE (23:17)
[2017-05-18] MEDS ORDERED: INSULIN REGULAR HUMAN 100 UNITS/ML *VIAL IVPUSH ONE (23:21)
[2017-05-18 23:58] VITALS: BMI 22.5
--- NOTE | 2017-05-19 00:15 | HP ---
CHIEF COMPLAINT: rectal pain PCP: Dr. Diop HISTORY OF PRESENT ILLNESS: 87yo F with PMH of early dementia, ileostomy, presents c/o rectal pain. Pt called EMS for rectal pain, which she has had intermittently for years. Pt reports that she occasionally passes small stools from her rectum despite the ileostomy. Pt also c/o dysuria and intermittent suprapubic pain. Pt denies fever, chills, chest pain, palpitations, sob. Pt is somewhat anxious and has confusion - provides conflicting answers to questions (i.e. reports Left foot great toe pain with gout, then on exam Left great toe is nontender to palpation and pt reports no hx of gout). ER course was notable for: (1) UA (+) for UTI -> Bactrim given (2) Ab/Pelvis CT -> unchanged from prior (3) CMP reveals MANUEL and hyperkalemia PAST MEDICAL HISTORY: paroxysmal afib chf htn copd anemia DVT cdiff with ileostomy polycythemia vera diverticulosis dementia (early) chronic back pain PAST SURGICAL HISTORY: cholecystectomy Right hemicolectomy with RLQ ostomy Right hip surgery Social History: Smoking: former, quit many years ago Alcohol: none Drugs: none Allergies No Known Drug Allergies Allergy (Verified 05/18/17 19:10) HOME MEDICATIONS: Home Medications Medication Instructions Recorded Aspirin [ASA -] 81 mg PO ASDIR 05/18/17 Bethanechol Chloride [Urecholine -] 25 mg PO BID 05/18/17 Diazepam [Valium] 5 mg PO HS 05/18/17 Metoprolol Tartrate [Lopressor -] 50 mg PO BID 05/18/17 Oxycodone HCl/Acetaminophen 1 each PO HS 05/18/17 [Oxycodone-Acetaminophen 5-325] Ranitidine [Zantac -] 150 mg PO BID 05/18/17 REVIEW OF SYSTEMS CONSTITUTIONAL: Absent: fever, chills, diaphoresis HEENT: Absent: rhinorrhea, nasal congestion, difficulty swallowing, sore throat, mouth pain CARDIOVASCULAR: Absent: chest pain, palpitations, irregular heart rate, peripheral edema RESPIRATORY: Absent: cough, shortness of breath, wheezing, stridor GASTROINTESTINAL: Absent: abdominal pain, abdominal distension, melena, hematochezia GENITOURINARY: Present: dysuria, frequency Absent: urgency, hesitancy MUSCULOSKELETAL: Present: back pain Absent: myalgia, arthralgia, joint swelling, neck pain SKIN: Absent: rash, itching, pallor NEUROLOGIC: Present: confusion PSYCHIATRIC: Present: anxious PHYSICAL EXAMINATION Last Vital Signs Temp Pulse Resp BP Pulse Ox 97.8 F 79 20 188/71 97 05/18/17 21:25 05/18/17 16:57 05/18/17 16:57 05/18/17 16:57 05/18/17 16:57 GENERAL: Awake, alert, anxious, confused. HEAD: Normal with no signs of trauma. EYES: Extraocular movements intact, sclera anicteric, conjunctiva clear. No lid lag. EARS, NOSE, THROAT: Moist mucous membranes. NECK: Supple, trachea midline. LUNGS: Breath sounds equal, clear to auscultation bilaterally. No wheezes, and no crackles. No accessory muscle use. HEART: Regular rate and rhythm, normal S1 and S2 without murmur, rub or gallop. ABDOMEN: Soft, nontender, not distended, no guarding, no rebound, no masses. RLQ with healthy ileostomy, with brown stool in bag. LOWER EXTREMITIES: Warm, well-perfused. No calf tenderness. No peripheral edema. PSYCHIATRIC: Cooperative. Good eye contact. SKIN: skin from perianal to vagina is inflammed/irritated, erythematous and painful, no skin breakdown. Laboratory Last Values WBC 11.0 K/mm3 (4.0-10.0) H 05/18/17 17:30 RBC 4.15 M/mm3 (3.60-5.2) 05/18/17 17:30 Hgb 14.5 GM/dL (10.7-15.3) 05/18/17 17:30 Hct 45.4 % (32.4-45.2) H 05/18/17 17:30 MCV 109.3 fl (80-96) H 05/18/17 17:30 MCH 34.9 pg (25.7-33.7) H 05/18/17 17:30 MCHC 32.0 g/dl (32.0-36.0) 05/18/17 17:30 RDW 14.6 % (11.6-15.6) 05/18/17 17:30 Plt Count 236 K/MM3 (134-434) 05/18/17 17:30 MPV 8.9 fl (7.5-11.1) 05/18/17 17:30 Neutrophils % 80.3 % (42.8-82.8) 05/18/17 17:30 Lymphocytes % 10.1 % (8-40) 05/18/17 17:30 Monocytes % 6.1 % (3.8-10.2) 05/18/17 17:30 Eosinophils % 2.1 % (0-4.5) 05/18/17 17:30 Basophils % 1.4 % (0-2.0) 05/18/17 17:30 Platelet Estimate Adequate (NORMAL) 05/18/17 17:30 Anisocytosis 2+ 05/18/17 17:30 Macrocytosis 2+ 05/18/17 17:30 Sodium 132 mmol/L (136-145) L 05/18/17 18:50 Potassium 5.4 mmol/L (3.5-5.1) H 05/18/17 18:50 Chloride 99 mmol/L (98-107) D 05/18/17 18:50 Carbon Dioxide 25 mmol/L (21-32) 05/18/17 18:50 Anion Gap 8 (8-16) 05/18/17 18:50 BUN 32 mg/dL (7-18) H D 05/18/17 18:50 Creatinine 1.4 mg/dL (0.55-1.02) H 05/18/17 18:50 Creat Clearance w eGFR 35.49 (>60) 05/18/17 18:50 Random Glucose 102 mg/dL (74-106) 05/18/17 18:50 Lactic Acid 1.5 mmol/L (0.4-2.0) 05/18/17 18:05 Calcium 8.9 mg/dL (8.5-10.1) 05/18/17 18:50 Total Bilirubin 0.4 mg/dL (0.2-1.0) D 05/18/17 18:50 AST 18 U/L (15-37) D 05/18/17 18:50 ALT 18 U/L (12-78) D 05/18/17 18:50 Alkaline Phosphatase 81 U/L (45-117) 05/18/17 18:50 Creatine Kinase 37 IU/L (26-192) 05/18/17 18:31 Troponin I < 0.02 ng/ml (0.00-0.05) 05/18/17 18:31 Total Protein 6.5 g/dl (6.4-8.2) 05/18/17 18:50 Albumin 3.6 g/dl (3.4-5.0) D 05/18/17 18:50 Urine Color Ltyellow 05/18/17 20:22 Urine Appearance Cloudy 05/18/17 20:22 Urine pH 5.0 (5.0-8.0) 05/18/17 20:22 Ur Specific [place] <= 1.005 (1.005-1.025) 05/18/17 20:22 Urine Protein Negative (NEGATIVE) 05/18/17 20:22 Urine Glucose (UA) Negative (NEGATIVE) 05/18/17 20:22 Urine Ketones Negative (NEGATIVE) 05/18/17 20:22 Urine Blood 1+ (NEGATIVE) H 05/18/17 20:22 Urine Nitrite Negative (NEGATIVE) 05/18/17 20:22 Urine Bilirubin Negative (NEGATIVE) 05/18/17 20:22 Urine Urobilinogen Negative mg/dL (0.2-1.0) 05/18/17 20:22 Ur Leukocyte Esterase 1+ (NEGATIVE) H 05/18/17 20:22 Urine RBC 5 /hpf (0-3) 05/18/17 20:22 Urine WBC 5 /hpf (3-5) 05/18/17 20:22 Ur Epithelial Cells Rare /hpf (FEW) 05/18/17 20:22 Urine Bacteria Rare /hpf (NONE SEEN) 05/18/17 20:22 Urine Mucus Rare 05/18/17 20:22 IMAGIN05/18/17 EKG -> NSR, peaked T waves 05/18/17 CXR -> official report pending 05/18/17 CT Ab/Pel non-contrast -> unchanged from prior. Nonobstructing 1 x 0.4cm calculus in Left renal pelvis. Right basilar mild bronchiectasis with associated peribronchial groundglass interstitial thickening, chronic persistent vs recurrent inflammation/infection? ASSESSMENT/PLAN: 87yo F with PMH of early dementia, ileostomy, presents c/o rectal pain, admitted to Med-Surg Observation for UTI and AMS. 1) UTI - continue Bactrim 250mg IVPB BID - hold home med of Urecholine as pt c/o urinary frequency 2) rectal pain - continue Nystatin Powder topical daily and Zinc Oxide/Petrolatum Ointment topically prn - pain control with Percocet po q6hr and Valium 5mg po HS 3) MANUEL/CKD - likely 2/2 dehydration - Cr at baseline (1.2-1.5 in 09/2015) - NS @ 75 ml/hr 4) electrolytes - hyperkalemia: D50 IVpush -> Regular insulin 10U IVpush -> Ca++ gluconate 1 ,000mg IVpush - hyponatremia: NS @ 75 ml/hr - f/u bmp in Am 5) htn - continue home med of Lopressor 50mg PO BID 6) afib - continue home med of ASA 81mg PO daily 7) FEN - Fluids: NS @ 75 ml/hr - Electrolytes: see above, continue to monitor - Nutrition: low sodium diet 8) prophylaxis - DVT prophylaxis with Heparin 5,000U SQ q8hr - deconditioning prophylaxis with PT Consult Visit type - Emergency Visit Emergency Visit: Yes ED Registration Date: 05/18/17 Care time: The patient presented to the Emergency Department on the above date and was hospitalized for further evaluation of their emergent condition. - New Patient This patient is new to me today: Yes Date on this admission: 05/19/17 - Critical Care Critical Care patient: No
[2017-05-19] MEDS ORDERED: CALCIUM GLUCONATE 10% - 1,000 MG/10 ML VIAL IVPB ONE (00:30)
--- NOTE | 2017-05-19 00:34 | PN ---
Teaching Attending Note Name of Resident: Heidi Yates ATTENDING PHYSICIAN STATEMENT I saw and evaluated the patient. I reviewed the resident's note and discussed the case with the resident. I agree with the resident's findings and plan as documented. SUBJECTIVE: 87 year old female BIBA after she called 911 . She reports lower back pain that is chronic but is getting worse .Further questioning reveals that she has burning upon urination and urinary frequency . Denies fever Poor historian OBJECTIVE: Vital Signs Temperature 97.8 F 05/18/17 21:25 Pulse Rate 79 05/18/17 16:57 Respiratory Rate 20 05/18/17 16:57 Blood Pressure 188/71 05/18/17 16:57 O2 Sat by Pulse Oximetry (%) 97 05/18/17 20:44 ABD - mild suprapubic tenderness Skin B/L buttocks - erythema , no decubiti CBC, BMP 05/18/17 17:30 05/18/17 18:50 ASSESSMENT AND PLAN: 1. UTI- 2. ARF - secondary to dehydration 3. Chronic back pain. 4. History of colostomy 5. Hyperkalemia - correct hyperkalemia and repeat - hydrate - repeat labs - bactrim for UTI
[2017-05-19] MEDS ORDERED: DEXTROSE 50%-WATER 25 GM/50 ML DISP.SYRIN ONE (00:41)
[2017-05-19] MEDS ORDERED: DEXTROSE 50%-WATER - 25 GM/50 ML VIAL ONE (00:49)
[2017-05-19] MEDS: SODIUM CHLORIDE 1,000 ML IV SCH (02:00)
[2017-05-19] MEDS: oxyCODONE HCL 5 MG TABLET PO PRN ×2 (04:17→20:12)
[2017-05-19] MEDS: ACETAMINOPHEN 325 MG TABLET (FP) PO PRN ×2 (04:18→20:12)
[2017-05-19] MEDS: HEPARIN NA (PORCINE) 5,000 UNITS/ML 1ML VIAL SQ SCH ×3 (06:15→22:11)
[2017-05-19 08:25] LABS: EOSINOPHIL 0.1 % (0-4.5); MCH 34.3 pg (25.7-33.7); MCHC 31.5 g/dl (32.0-36.0); MEAN CELL VOLUME 108.9 fl (80-96); MEAN PLT VOLUME 8.2 fl (7.5-11.1); NEUTROPHILS 87.2 % (42.8-82.8); PLATELET COUNT 200 K/MM3 (134-434); RDW 14.4 % (11.6-15.6); WHITE BLOOD COUNT 14.3 K/mm3 (4.0-10.0)
[2017-05-19 08:44] LABS: ANION GAP 9 (8-16); CALCIUM 8.7 mg/dL (8.5-10.1); CO2 25 mmol/L (21-32); CREATININE 1.4 mg/dL (0.55-1.02); GLUCOSE,RANDOM 83 mg/dL (74-106)
[2017-05-19] MEDS ORDERED: PT OWN MED DRAWER 7, Y5N ONE (09:40)
[2017-05-19] MEDS: NYSTATIN POWDER 100,000 UNITS/GM - 15 GM TOPICAL POWDER TP SCH (09:43)
[2017-05-19] MEDS: RANITIDINE HCL 150 MG TABLET (FP) PO SCH ×2 (09:43→22:11)
[2017-05-19] MEDS: METOPROLOL TARTRATE 50 MG TABLET (FP) PO SCH ×2 (09:43→22:11)
[2017-05-19] MEDS: ASPIRIN 81 MG CHEWABLE TABLETS PO SCH (09:43)
[2017-05-19] MEDS ORDERED: WATER IVPB SCH (10:00)
[2017-05-19] MEDS ORDERED: SULFAMETHOXAZOLE 80 MG/TRIMETHOPRIM 16 MG/ML VIAL IVPB SCH (10:00)
[2017-05-19] MEDS ORDERED: TRIMETHOPRIM IVPB SCH (10:00)
[2017-05-19] MEDS ORDERED: DEXTROSE 5% IVPB SCH (10:00)
[2017-05-19] MEDS ORDERED: SULFAMETHOXAZOLE IVPB SCH (10:00)
--- NOTE | 2017-05-19 12:20 | PN ---
Progress Note, Physician Chief Complaint: Ms Lopez complains of pain everywhere. Says it has been going on a long time and wanted to come to the hospital to see what we can do. Says she had rectal pain secondary to using desitin. Denies shortness of breath. Says she cannot eat anything else or she will throw up. - Current Medication List Current Medications: Active Medications Acetaminophen (Tylenol -) 325 mg PO Q6H PRN PRN Reason: PAIN Last Admin: 05/19/17 04:18 Dose: 325 mg Aspirin (Asa -) 81 mg PO DAILY [facility] Last Admin: 05/19/17 09:43 Dose: 81 mg Diazepam (Valium -) 5 mg PO HS KARYNA Heparin Sodium (Porcine) (Heparin -) 5,000 unit SQ TID [facility] Last Admin: 05/19/17 06:15 Dose: 5,000 unit Sodium Chloride (Normal Saline -) 1,000 mls @ 75 mls/hr IV ASDIR KARYNA Last Admin: 05/19/17 02:00 Dose: 75 mls/hr CEFTRIAXONE 1 G/50 ML PREMIX (Ceftriaxone 1 Gm-D5w Bag) 50 mls @ 100 mls/hr IVPB DAILY [facility] Lactobacillus Acidophilus (Bacid -) 1 tab PO DAILY [facility] Metoprolol Tartrate (Lopressor -) 50 mg PO BID [facility] Last Admin: 05/19/17 09:43 Dose: 50 mg Nystatin (Nystop Powder -) 1 applic TP DAILY [facility] Last Admin: 05/19/17 09:43 Dose: 1 applic Oxycodone HCl (Roxicodone -) 5 mg PO Q6H PRN PRN Reason: PAIN Last Admin: 05/19/17 04:17 Dose: 5 mg Petrolatum (Sensi-Care Protective Ointment) 1 applic TP ASDIR PRN PRN Reason: HYGEINE Last Admin: 05/18/17 22:19 Dose: 1 applic Ranitidine HCl (Zantac -) 150 mg PO BID [facility] Last Admin: 05/19/17 09:43 Dose: 150 mg Zinc Oxide (Desitin Diaper Rash Oint -) 1 applic TP ASDIR PRN PRN Reason: HYGEINE Last Admin: 05/18/17 22:18 Dose: 1 applic - Objective Vital Signs: Vital Signs Temperature 36.6 C 05/19/17 06:36 Pulse Rate 108 H 05/19/17 10:49 Respiratory Rate 20 05/19/17 10:49 Blood Pressure 120/59 05/19/17 10:49 O2 Sat by Pulse Oximetry (%) 96 05/19/17 06:49 Constitutional: Yes: Well Nourished, No Distress, Calm Cardiovascular: Yes: Regular Rate and Rhythm. No: Gallop, Murmur, Rub Respiratory: Yes: Regular, CTA Bilaterally. No: Rales, Rhonchi, Wheezes Gastrointestinal: Yes: Normal Bowel Sounds, Soft. No: Distention, Tenderness Extremities: Yes: WNL Edema: No Labs: CBC, BMP 05/19/17 06:50 05/19/17 06:50 Problem List - Problems (1) UTI (urinary tract infection) Assessment/Plan: -patient's urinalysis is equivocal for UTI -with leukocytosis -will continue empiric antibiotics -will NOT use IV bactrim secondary to age and creatinine clearance -change to rocephin -follow up cultures Code(s): N39.0 - URINARY TRACT INFECTION, SITE NOT SPECIFIED (2) CKD (chronic kidney disease) Assessment/Plan: -at baseline -monitor Code(s): N18.9 - CHRONIC KIDNEY DISEASE, UNSPECIFIED (3) HTN (hypertension) Assessment/Plan: -well controlled -continue current regimen Code(s): I10 - ESSENTIAL (PRIMARY) HYPERTENSION (4) Hyperkalemia Assessment/Plan: -resolved Code(s): E87.5 - HYPERKALEMIA (5) Paroxysmal a-fib Assessment/Plan: -controlled -currently in sinus rhythm Code(s): I48.0 - PAROXYSMAL ATRIAL FIBRILLATION
--- NOTE | 2017-05-19 12:58 | EKG ---
Test Reason : Blood Pressure : / mmHG Vent. Rate : 075 BPM Atrial Rate : 075 BPM P-R Int : 178 ms QRS Dur : 072 ms QT Int : 358 ms P-R-T Axes : 083 061 061 degrees QTc Int : 399 ms POOR DATA QUALITY, INTERPRETATION MAY BE ADVERSELY AFFECTED NORMAL SINUS RHYTHM POSSIBLE LEFT ATRIAL ENLARGEMENT BORDERLINE ECG WHEN COMPARED WITH ECG OF 27-AUG-2016 16:43, NO SIGNIFICANT CHANGE WAS FOUND Confirmed by ROB VALENTE, MARY ([id number]) on 05/19/2017 12:58:12 PM Referred By: Confirmed By:MARY RIVAS MD
[2017-05-19] MEDS: LACTOBACILLUS ACIDOPHILUS 1 EACH TAB (FP) PO SCH (13:14)
[2017-05-19] MEDS: CEFTRIAXONE 1 G/50 ML PREMIX 50 ML IVPB SCH (13:14)
[2017-05-19] MEDS ORDERED: diazePAM 5 MG TABLET PO SCH (22:00)
[2017-05-20] MEDS: HEPARIN NA (PORCINE) 5,000 UNITS/ML 1ML VIAL SQ SCH ×2 (06:30→14:42)
[2017-05-20] MEDS: ACETAMINOPHEN 325 MG TABLET (FP) PO PRN (06:30)
[2017-05-20] MEDS: oxyCODONE HCL 5 MG TABLET PO PRN (06:32)
[2017-05-20] MEDS: SODIUM CHLORIDE 1,000 ML IV SCH ×2 (06:33)
[2017-05-20 08:23] LABS: BASOPHIL 1.4 % (0-2.0); EOSINOPHIL 2.2 % (0-4.5); MCH 34.8 pg (25.7-33.7); MCHC 31.9 g/dl (32.0-36.0); MEAN CELL VOLUME 109.3 fl (80-96); MEAN PLT VOLUME 8.8 fl (7.5-11.1); NEUTROPHILS 76.8 % (42.8-82.8); PLATELET COUNT 191 K/MM3 (134-434); RDW 14.4 % (11.6-15.6); WHITE BLOOD COUNT 9.8 K/mm3 (4.0-10.0)
[2017-05-20 08:27] LABS: ANION GAP 9 (8-16); CALCIUM 8.3 mg/dL (8.5-10.1); CO2 25 mmol/L (21-32); CREATININE 1.5 mg/dL (0.55-1.02); GLUCOSE,RANDOM 78 mg/dL (74-106); MAGNESIUM 2.1 mg/dL (1.8-2.4); PHOSPHOROUS 2.9 mg/dL (2.5-4.9)
[2017-05-20 10:01] VITALS: TEMP 97.8
[2017-05-20] MEDS: NYSTATIN POWDER 100,000 UNITS/GM - 15 GM TOPICAL POWDER TP SCH (10:47)
[2017-05-20] MEDS: ZINC OXIDE/PETROLATUM,WHITE 1 APPLIC OINT...G. TP PRN (10:47)
[2017-05-20] MEDS: RANITIDINE HCL 150 MG TABLET (FP) PO SCH (10:53)
[2017-05-20] MEDS: ASPIRIN 81 MG CHEWABLE TABLETS PO SCH (10:53)
[2017-05-20] MEDS: METOPROLOL TARTRATE 50 MG TABLET (FP) PO SCH (10:54)
[2017-05-20] MEDS: LACTOBACILLUS ACIDOPHILUS 1 EACH TAB (FP) PO SCH (10:54)
[2017-05-20] MEDS: CEFTRIAXONE 1 G/50 ML PREMIX 50 ML IVPB SCH (10:54)
--- NOTE | 2017-05-20 13:24 | DS ---
Physical Examination Vital Signs: Vital Signs Temperature 36.6 C 05/20/17 09:50 Pulse Rate 74 05/20/17 09:50 Respiratory Rate 18 05/20/17 09:50 Blood Pressure 127/55 05/20/17 09:50 O2 Sat by Pulse Oximetry (%) 96 05/19/17 06:49 Constitutional: Yes: Well Nourished, No Distress, Calm Cardiovascular: Yes: Regular Rate and Rhythm. No: Gallop, Murmur, Rub Respiratory: Yes: Regular, CTA Bilaterally. No: Rales, Rhonchi, Wheezes Gastrointestinal: Yes: Normal Bowel Sounds, Soft. No: Distention, Tenderness Extremities: Yes: WNL Edema: No Labs: CBC, BMP 05/20/17 07:10 05/20/17 07:10 Discharge Summary Reason For Visit: URINARY TRACT INFECTION Current Active Problems Altered mental state (Acute) CKD (chronic kidney disease) (Acute) Paroxysmal a-fib (Acute) UTI (urinary tract infection) (Acute) Hospital Course: (1) UTI (urinary tract infection) Code(s): N39.0 - URINARY TRACT INFECTION, SITE NOT SPECIFIED (2) CKD (chronic kidney disease) Code(s): N18.9 - CHRONIC KIDNEY DISEASE, UNSPECIFIED (3) HTN (hypertension) Code(s): I10 - ESSENTIAL (PRIMARY) HYPERTENSION (4) Hyperkalemia Code(s): E87.5 - HYPERKALEMIA (5) Paroxysmal a-fib Code(s): I48.0 - PAROXYSMAL ATRIAL FIBRILLATION Ms Lopez is an 87 year old female who came in with rectal pain and was admitted for UTI. She was originally started on IV bactrim, however this was changed to rocephin while here. Her pain is chronic and unchanged, it remained controlled while here. Her urine cultures came back contaminant but since her leukocytosis resolved with antibiotics she will be discharged on a course of keflex. She is safe for discharge home. 33 minutes spent in preparation of this discharge Condition: Stable - Instructions Diet, Activity, Other Instructions: resume previous diet and activity Referrals: Jose Diop MD [Primary Care Provider] - Disposition: VNS/HOME HEALTH CARE - Home Medications Comprehensive Discharge Medication List: Ambulatory Orders Aspirin [ASA -] 81 mg PO ASDIR 05/18/17 Bethanechol Chloride [Bethanechol Chloride -] 25 mg PO BID 05/18/17 Diazepam [Valium] 5 mg PO HS 05/18/17 Metoprolol Tartrate [Lopressor -] 50 mg PO BID 05/18/17 Oxycodone HCl/Acetaminophen [Oxycodone-Acetaminophen 5-325] 1 each PO HS Ranitidine [Zantac -] 150 mg PO BID 05/18/17 Cephalexin [Keflex] 500 mg PO BID #14 capsule 05/20/17 Lactobacillus Acidophilus [Bacid -] 1 tab PO DAILY #7 tab 05/20/17
[2017-05-20 14:54] VITALS: BP 131/58; PULSE 79
== END 2017-05-20 16:30 | disposition home health service (06) ==
LOC: JER 16:53 → J6S 20:44
PROVIDERS: ADMIT Internal Medicine; ATTEND Internal Medicine
PROC: 3E03329 Introduction of Other Anti-infective into Peripheral Vein, Percutaneous Approach (ICD-10-PCS; principal; 2017-05-18)
PROC: 3E033GC Introduction of Other Therapeutic Substance into Peripheral Vein, Percutaneous Approach (ICD-10-PCS; 2017-05-18)
PROC: 3E033VG Introduction of Insulin into Peripheral Vein, Percutaneous Approach (ICD-10-PCS; 2017-05-18)
PROC: 3E013GC Introduction of Other Therapeutic Substance into Subcutaneous Tissue, Percutaneous Approach (ICD-10-PCS; 2017-05-18)
DX: N39.0 Urinary tract infection, site not specified (principal); R41.82 Altered mental status, unspecified; I48.0 Paroxysmal atrial fibrillation; I50.9 Heart failure, unspecified; J44.9 Chronic obstructive pulmonary disease, unspecified; E78.5 Hyperlipidemia, unspecified; E87.8 Other disorders of electrolyte and fluid balance, not elsewhere classified; N18.9 Chronic kidney disease, unspecified; D45 Polycythemia vera; Z86.718 Personal history of other venous thrombosis and embolism; Z79.82 Long term (current) use of aspirin; N17.9 Acute kidney failure, unspecified; I12.9 Hypertensive chronic kidney disease with stage 1 through stage 4 chronic kidney disease, or unspecified chronic kidney disease; F03.90 Unspecified dementia, unspecified severity, without behavioral disturbance, psychotic disturbance, mood disturbance, and anxiety; Z86.19 Personal history of other infectious and parasitic diseases; Z87.891 Personal history of nicotine dependence; Z90.49 Acquired absence of other specified parts of digestive tract
CPT/HCPCS: 36415; 71010-TC; 74176-TC; 80048; 80053; 81003; 81015; 82550; 83605; 83735; 84100; 84484; 85025; 87040; 87086; 93005; 93010; 96365; 96372; 96375; 97116-GP; 97161-GP; 99285-25; G0378; J1644

== ENCOUNTER 2017-11-01 21:29 | Inpatient (IN) | payer OTHER, MEDICARE ==
[2017-11-01 23:07] LABS: VENOUS PC02 49.4 mmHg (38-52); VENOUS PH 7.36 (7.32-7.42)
--- NOTE | 2017-11-01 23:09 | PDOC ---
History of Present Illness - General Chief Complaint: SIRS, Suspected/Possible Stated Complaint: COUGH, DIFF BREATHING Time Seen by Provider: 11/01/17 21:57 History Source: Patient, Family (daughter at bed side) Exam Limitations: No Limitations - History of Present Illness Initial Comments: PCP"Dr.David Diop 11/01/17 23:07 87 year old female with pmhx of UTI, HTN, HLD, eleostomy , presented to the ED today from home with 3 days history of difficulty breathing , cough, chest congestion , nausea and vomiting, loss of appetite, , generalized weakness. pt denies fever but reports some chills,,she reports frontal headache, with lightheadedness specially when she get up. pt reports rust urine and oligourea and she is scheduled for US November 08, with urologist , pt also report chest pain , mid sternal 6/10 radiate to her both shoulder . associated with palpitaion, she reports swelling in her feet , she has peripheral venous statsis. PMH: BP, UTI, HLD, C.diff PSH: eleostomy S/P sever C.diff, Right hip fx , stent left feet. Social: previous smoker quit 30 years ago, smoke socially for 30 years , denies alcohol or drugs abuse Allergies: NKDA Physical: Vital Signs Period Temp Pulse Resp BP Sys/Galan Pulse Ox Last 24 Hr 101.3 F 120 26 140/70 90 General: poor nourished laying down in bed in mild distress, AAOx3 Head: NC/AT Neck: supple ENT: Dry MM, IKE, EOMI Lungs: B/L base crackles , Heart: Tachy , normal S1, S2, no MRG Abdomen : soft, diffuse tenderness, right eliostomy , Neuro: No focal deficit, speech normal Psych: AAOx 3 , appropriate mood and effect will work pt for sepsis will R/P MT CXR [place] cx IV fluids IV Tylenol Past History - Past Medical History Allergies/Adverse Reactions: Allergies Allergy/AdvReac Type Severity Reaction Status Date / Time No Known Drug Allergies Allergy Verified 05/18/17 19:10 Home Medications: Ambulatory Orders Aspirin [ASA -] 81 mg PO ASDIR 05/18/17 Bethanechol Chloride [Bethanechol Chloride -] 25 mg PO BID 05/18/17 Diazepam [Valium] 5 mg PO HS 05/18/17 Metoprolol Tartrate [Lopressor -] 50 mg PO BID 05/18/17 Oxycodone HCl/Acetaminophen [Oxycodone-Acetaminophen 5-325] 1 each PO HS Ranitidine [Zantac -] 150 mg PO BID 05/18/17 Lactobacillus Acidophilus [Bacid -] 1 tab PO DAILY #7 tab 05/20/17 Anemia: No Asthma: No Cancer: No Cardiac Disorders: Yes (PALPITATIONS, PAFIB) CVA: No COPD: Yes CHF: Yes Dementia: Yes (early) Diabetes: No GI Disorders: Yes (cdiff) Disorders: No HTN: Yes Hypercholesterolemia: No Liver Disease: No Seizures: No Thyroid Disease: No - Surgical History Abdominal Surgery: Yes (PARTIAL COLECOMY WITH DIVERTICULOSIS, ILEOSTOMY) Appendectomy: No Cardiac Surgery: No Cholecystectomy: Yes Lung Surgery: Yes (lung biopsy) Neurologic Surgery: No Orthopedic Surgery: Yes (right hip surgery) - Immunization History Td Vaccination: Yes TDAP Vaccination: No Immunization Up to Date: Yes - Suicide/Smoking/Psychosocial Hx Smoking Status: No Smoking History: Former smoker Have you smoked in the past 12 months: No Number of Cigarettes Smoked Daily: 0 If you are a former smoker, when did you quit?: many years ago Information on smoking cessation initiated: No Hx Alcohol Use: No Drug/Substance Use Hx: No Substance Use Type: None Hx Substance Use Treatment: No *Physical Exam - Vital Signs Last Vital Signs Temp Pulse Resp BP Pulse Ox 120 H 26 H 140/70 90 L 11/01/17 21:41 11/01/17 21:41 11/01/17 21:41 11/01/17 21:41 ED Treatment Course - LABORATORY CBC & Chemistry Diagram: 11/03/17 06:30 11/02/17 12:25 - RADIOLOGY Radiology Studies Ordered: Category Date Time Status CHEST X-RAY PORTABLE* [RAD] Stat Radiology 11/01/17 23:03 Ordered *DC/Admit/Observation/Transfer Diagnosis at time of Disposition: Cough UTI (urinary tract infection) Qualifiers: Urinary tract infection type: acute cystitis Hematuria presence: with hematuria Qualified Code(s): N30.01 - Acute cystitis with hematuria Chronic back pain Qualifiers: Back pain location: back pain in unspecified location Back pain laterality: unspecified Qualified Code(s): M54.9 - Dorsalgia, unspecified Fever Qualifiers: Fever type: due to other condition Qualified Code(s): R50.81 - Fever presenting with conditions classified elsewhere - Referrals - Patient Instructions - Post Discharge Activity
[2017-11-01] MEDS ORDERED: ACETAMINOPHEN 1000 MG/100 ML VIAL (NON FORMULARY) IVPB ONE (23:24)
[2017-11-01 23:28] LABS: HEMATOCRIT 44.6 % (32.4-45.2); HEMOGLOBIN 14.4 GM/dL (10.7-15.3); MCH 35.7 pg (25.7-33.7); MCHC 32.2 g/dl (32.0-36.0); MEAN CELL VOLUME 110.9 fl (80-96); MEAN PLT VOLUME 8.7 fl (7.5-11.1); PLATELET COUNT 186 K/MM3 (134-434); RBC 4.03 M/mm3 (3.60-5.2); RDW 15.2 % (11.6-15.6); WHITE BLOOD COUNT 11.1 K/mm3 (4.0-10.0)
[2017-11-01] MEDS ORDERED: SODIUM CHLORIDE 500 ML IV STA (23:31)
[2017-11-01] MEDS ORDERED: ACETAMINOPHEN INJECTION 100 ML IVPB ONE (23:34)
[2017-11-01 23:37] LABS: INR 0.99 (0.82-1.09); PROTHROMBIN TIME (PATIENT) 11.2 SEC (9.98-11.88)
[2017-11-01 23:54] LABS: URINE APPEARANCE CLOUDY; URINE BILIRUBIN NEGATIVE (<2.0 mg/dL); URINE BLOOD 3+ (NEGATIVE); URINE COLOR AMBER; URINE GLUCOSE (UA) NEGATIVE (NEGATIVE); URINE KETONE 1+ (NEGATIVE); URINE NITRITE NEGATIVE (NEGATIVE); URINE UROBILINOGEN NEGATIVE mg/dL (0.2-1.0)
[2017-11-02 00:09] LABS: ANION GAP 11 (8-16); BLOOD UREA NITROGEN 25 mg/dL (7-18); CALCIUM 9.4 mg/dL (8.5-10.1); CHLORIDE 100 mmol/L (98-107); CO2 27 mmol/L (21-32); CREATININE 1.3 mg/dL (0.55-1.02); GLUCOSE,RANDOM 153 mg/dL (74-106); POTASSIUM 4.8 mmol/L (3.5-5.1); SODIUM 138 mmol/L (136-145)
[2017-11-02 00:10] LABS: ALBUMIN 3.7 g/dl (3.4-5.0); ALK PHOS 107 U/L (45-117); BILIRUBIN,TOTAL 0.6 mg/dL (0.2-1.0); N-TERMINAL BNP 3811.11 pg/ml (5-450); SGOT/AST 18 U/L (15-37); SGPT/ALT 14 U/L (12-78); TOT PROT 6.8 g/dl (6.4-8.2)
[2017-11-02 00:22] LABS: URINE LEUK ESTERASE 2+ (NEGATIVE); URINE PROTEIN 2+ (NEGATIVE)
[2017-11-02 00:35] LABS: EPI CELLS RARE /HPF (FEW); URINE BACTERIA MANY /hpf (NONE SEEN); URINE HYALINE CAST 14 /lpf
--- NOTE | 2017-11-02 00:46 | PDOC ---
Attending Attestation - Resident Resident Name: Kash Oliveira - ED Attending Attestation I have performed the following: I have examined & evaluated the patient, The case was reviewed & discussed with the resident, I agree w/resident's findings & plan, Exceptions are as noted - HPI HPI: 11/02/17 00:46 alert 87 yp female with fever head ncat neck supple ABD UROSTOMY BAG INTACT lungs ++crackles cvr sinus tachy extremities no edema 11/02/17 01:10 - Physicial Exam PE: 11/02/17 01:40 please see above exam - Medical Decision Making 11/02/17 01:41 Ua+++ uti cxr ? llq infiltrates ++bnp, pt given lasix imp :UTI, chf with possible infiltrate admitted med/surg
[2017-11-02] MEDS: SODIUM CHLORIDE 1,000 ML IV SCH ×2 (00:53→17:16)
--- NOTE | 2017-11-02 00:55 | PN ---
Teaching Attending Note Name of Resident: Tomas Bustillos ATTENDING PHYSICIAN STATEMENT I saw and evaluated the patient. I reviewed the resident's note and discussed the case with the resident. I agree with the resident's findings and plan as documented. SUBJECTIVE: 87 yo F with pmhx. of UTI, HTN, HLD, iliostomy, p afob, PCV?, Dementia, chronic back pain, Copd, diverticulosis who presented with 3 day hx. of shortness of breath, cough, and congestion. Also with nausea, vomiting, and weakness. States she felt lightheaded when she get up. State she has dark urine and has a apt. with Dr. Gasca. OBJECTIVE: Physical: VS: Vital Signs Period Temp Pulse Resp BP Sys/Galan Pulse Ox Last 24 Hr 101.3 F 120 26 140/70 90 GEN: NAD, Resting in bed, AA0X3 HEENT: NCAT, PERRL, Throat without erythema or exudates CARD: RRR S1,S2 RESP: mild crackles bases ABD: BSX4, Ileostomy EXT:- C/C/E CBCD WBC 11.1 K/mm3 (4.0-10.0) H 11/01/17 22:45 RBC 4.03 M/mm3 (3.60-5.2) 11/01/17 22:45 Hgb 14.4 GM/dL (10.7-15.3) D 11/01/17 22:45 Hct 44.6 % (32.4-45.2) D 11/01/17 22:45 MCV 110.9 fl (80-96) H 11/01/17 22:45 MCHC 32.2 g/dl (32.0-36.0) 11/01/17 22:45 RDW 15.2 % (11.6-15.6) 11/01/17 22:45 Plt Count 186 K/MM3 (134-434) 11/01/17 22:45 MPV 8.7 fl (7.5-11.1) 11/01/17 22:45 CMP Sodium 138 mmol/L (136-145) 11/01/17 22:45 Potassium 4.8 mmol/L (3.5-5.1) 11/01/17 22:45 Chloride 100 mmol/L (98-107) 11/01/17 22:45 Carbon Dioxide 27 mmol/L (21-32) 11/01/17 22:45 Anion Gap 11 (8-16) 11/01/17 22:45 BUN 25 mg/dL (7-18) H 11/01/17 22:45 Creatinine 1.3 mg/dL (0.55-1.02) H 11/01/17 22:45 Creat Clearance w eGFR 38.66 (>60) 11/01/17 22:45 Random Glucose 153 mg/dL (74-106) H 11/01/17 22:45 Calcium 9.4 mg/dL (8.5-10.1) 11/01/17 22:45 Total Bilirubin 0.6 mg/dL (0.2-1.0) D 11/01/17 22:45 AST 18 U/L (15-37) 11/01/17 22:45 ALT 14 U/L (12-78) 11/01/17 22:45 Alkaline Phosphatase 107 U/L (45-117) 11/01/17 22:45 Total Protein 6.8 g/dl (6.4-8.2) 11/01/17 22:45 Albumin 3.7 g/dl (3.4-5.0) 11/01/17 22:45 CARDIAC ENZYMES Creatine Kinase 36 IU/L (26-192) 11/01/17 22:45 Troponin I < 0.02 ng/ml (0.00-0.05) 11/01/17 22:45 CXR- ?Congestion Urine Test Results Urine Color [place] 11/01/17 23:44 Urine Appearance Cloudy 11/01/17 23:44 Urine pH 5.0 (5.0-8.0) 11/01/17 23:44 Ur Specific [place] 1.017 (1.001-1.035) 11/01/17 23:44 Urine Protein 2+ (NEGATIVE) H 11/01/17 23:44 Urine Glucose (UA) Negative (NEGATIVE) 11/01/17 23:44 Urine Ketones 1+ (NEGATIVE) H 11/01/17 23:44 Urine Blood 3+ (NEGATIVE) H 11/01/17 23:44 Urine Nitrite Negative (NEGATIVE) 11/01/17 23:44 Urine Bilirubin Negative (<2.0 mg/dL) 11/01/17 23:44 Ur Leukocyte Esterase 2+ (NEGATIVE) H 11/01/17 23:44 Ur Epithelial Cells Rare /HPF (FEW) 11/01/17 23:44 Urine Bacteria Many /hpf (NONE SEEN) 11/01/17 23:44 Ambulatory Orders Aspirin [ASA -] 81 mg PO ASDIR 05/18/17 Bethanechol Chloride [Bethanechol Chloride -] 25 mg PO BID 05/18/17 Diazepam [Valium] 5 mg PO HS 05/18/17 Metoprolol Tartrate [Lopressor -] 50 mg PO BID 05/18/17 Oxycodone HCl/Acetaminophen [Oxycodone-Acetaminophen 5-325] 1 each PO HS Ranitidine [Zantac -] 150 mg PO BID 05/18/17 Lactobacillus Acidophilus [Bacid -] 1 tab PO DAILY #7 tab 05/20/17 ASSESSMENT AND PLAN: 87 yo F with pmhx. of UTI, HTN, HLD, iliostomy, p afob, PCV?, Dementia, chronic back pain, Copd, diverticulosis who presented with 3 day hx. of shortness of breath, cough, foudn to be septic 1.) Sepsis - Most likely due to UTI/? Pna - ? Possible early CAP - Ceftriaxone/AZzithro - [place] Cx - Repeat [place] 2.) CARD Afib/CHF? - Last Echo 2011 - Repeat Echo - Ronaldo Fan in [place] - BB - [id number] - Unknown why pt not on A/C - Will defer to Cardio 3.) MANUEL/?CKD - U lytes - Renal US - Urology 4.) HTN - c/W Home meds 5.) Dvt Ppx - Heparin 5000 q8
[2017-11-02] MEDS ORDERED: FUROSEMIDE 40 MG/4 ML INJECTABLE VIAL IVPUSH ONE (00:56)
--- NOTE | 2017-11-02 01:13 | HP ---
CHIEF COMPLAINT: weakness, SOB, n/v PCP: Dr. Jose Diop HISTORY OF PRESENT ILLNESS: 87 year old female with a history of recurrent UTIs, hypertension, HLD, c. diff s/p ileostomy is presenting for one week history of cough and chest congestion, shortness of breath, chills, and nonbloody nausea/vomiting. She also states that she has felt weak for about 1 week as well. She states that the cough is hoarse and productive of sputum, but she swallows it and has not noted a color. She additionally reports dysuria and urinary frequency for several months and a mild suprapubic pain. She reports having a future appointment with Dr. Davies to work up the recurrent UTIs. States that she has an ileostomy that she received one year ago due to an episode of c. diff and has consistently had mild abdominal pain around the area due to placement. Denies history of heart failure. Denies chest pain, nausea, vomiting, diarrhea, fevers, peripheral edema. ER course was notable for: (1) BNP > 3000 (2) (+) UA, WBCs, leukocyte esterase, bateriuria (3) Cre 1.3 PAST MEDICAL HISTORY: recurrent UTIs, hypertension, HLD, c. diff s/p ileostomy PAST SURGICAL HISTORY: ileostomy, R hip fracture, stent in L foot Social History: Smoking: former smoker (quit 30 years ago) Alcohol: non drinker Drugs: none Allergies No Known Drug Allergies Allergy (Verified 05/18/17 19:10) HOME MEDICATIONS: Home Medications Medication Instructions Recorded Aspirin [ASA -] 81 mg PO ASDIR 05/18/17 Bethanechol Chloride [Bethanechol 25 mg PO BID 05/18/17 Chloride -] Diazepam [Valium] 5 mg PO HS 05/18/17 Metoprolol Tartrate [Lopressor -] 50 mg PO BID 05/18/17 Oxycodone HCl/Acetaminophen 1 each PO HS 05/18/17 [Oxycodone-Acetaminophen 5-325] Ranitidine [Zantac -] 150 mg PO BID 05/18/17 Lactobacillus Acidophilus [Bacid -] 1 tab PO DAILY #7 tab 05/20/17 REVIEW OF SYSTEMS CONSTITUTIONAL: chills, generalized weakness, loss of appetite, Absent: fever, diaphoresis, malaise, weight change HEENT: Absent: rhinorrhea, nasal congestion, throat pain, throat swelling, difficulty swallowing, mouth swelling, ear pain, eye pain, visual changes CARDIOVASCULAR: Absent: chest pain, syncope, palpitations, irregular heart rate, lightheadedness , peripheral edema RESPIRATORY: shortness of breath Absent: cough, dyspnea with exertion, orthopnea, wheezing, stridor, hemoptysis GASTROINTESTINAL: Absent: abdominal pain, abdominal distension, nausea, vomiting, diarrhea, constipation, melena, hematochezia GENITOURINARY: Absent: dysuria, frequency, urgency, hesitancy, hematuria, flank pain, genital pain MUSCULOSKELETAL: Absent: myalgia, arthralgia, joint swelling, back pain, neck pain SKIN: Absent: rash, itching, pallor HEMATOLOGIC/IMMUNOLOGIC: Absent: easy bleeding, easy bruising, lymphadenopathy, frequent infections ENDOCRINE: Absent: unexplained weight gain, unexplained weight loss, heat intolerance, cold intolerance NEUROLOGIC: Absent: headache, focal weakness or paresthesias, dizziness, unsteady gait, seizure, mental status changes, bladder or bowel incontinence PSYCHIATRIC: Absent: anxiety, depression, suicidal or homicidal ideation, hallucinations. PHYSICAL EXAMINATION Vital Signs - 24 hr 11/01/17 11/01/17 11/02/17 21:41 23:23 01:00 Temperature 101.3 F H 100.6 F H Pulse Rate 120 H Respiratory 26 H Rate Blood Pressure 140/70 O2 Sat by Pulse 90 L Oximetry (%) GENERAL: A&Ox3, no acute distress EYES: PERRLA, EOMI ENT: Moist mucus membranes NECK: No JVD LUNGS: mild bibasilar crackles noted on exam, no wheezes HEART: RRR, systolic murmur 2/6 noted on exam ABDOMEN: Soft, BS present, ileostomy present on R side of abdomen draining soft yellow stool, mild tenderness to palpation of suprapubic region MUSCULOSKELETAL: No CVA Tenderness EXTREMITIES: 2+ pulses, no edema. NEUROLOGICAL: Cranial nerves II-XII intact Laboratory Results - last 24 hr 11/01/17 11/01/17 11/01/17 22:45 22:45 22:45 WBC 11.1 H RBC 4.03 Hgb 14.4 D Hct 44.6 D MCV 110.9 H MCH 35.7 H MCHC 32.2 RDW 15.2 Plt Count 186 MPV 8.7 Neutrophils % No Result Required. Lymphocytes % No Result Required. PT with INR 11.20 INR 0.99 PTT (Actin FS) VBG pH 7.36 POC VBG pCO2 49.4 POC VBG pO2 31.0 Mixed VBG HCO3 27.4 H Sodium Potassium Chloride Carbon Dioxide Anion Gap BUN Creatinine Creat Clearance w eGFR Random Glucose Lactic Acid Calcium Total Bilirubin AST ALT Alkaline Phosphatase Creatine Kinase Troponin I B-Natriuretic Peptide Total Protein Albumin Urine Color Urine Appearance Urine pH Ur Specific [place] Urine Protein Urine Glucose (UA) Urine Ketones Urine Blood Urine Nitrite Urine Bilirubin Urine Urobilinogen Ur Leukocyte Esterase Urine WBC (Auto) Urine RBC (Auto) Ur Epithelial Cells Urine Bacteria Hyaline Casts 11/01/17 11/01/17 11/01/17 22:45 22:45 22:45 WBC RBC Hgb Hct MCV MCH MCHC RDW Plt Count MPV Neutrophils % Lymphocytes % PT with INR INR PTT (Actin FS) 32.9 VBG pH POC VBG pCO2 POC VBG pO2 Mixed VBG HCO3 Sodium 138 Potassium 4.8 Chloride 100 Carbon Dioxide 27 Anion Gap 11 BUN 25 H Creatinine 1.3 H Creat Clearance w eGFR 38.66 Random Glucose 153 H Lactic Acid 1.6 Calcium 9.4 Total Bilirubin 0.6 D AST 18 ALT 14 Alkaline Phosphatase 107 Creatine Kinase 36 Troponin I < 0.02 B-Natriuretic Peptide 3811.11 H Total Protein 6.8 Albumin 3.7 Urine Color Urine Appearance Urine pH Ur Specific [place] Urine Protein Urine Glucose (UA) Urine Ketones Urine Blood Urine Nitrite Urine Bilirubin Urine Urobilinogen Ur Leukocyte Esterase Urine WBC (Auto) Urine RBC (Auto) Ur Epithelial Cells Urine Bacteria Hyaline Casts 11/01/17 11/01/17 11/01/17 22:45 22:45 22:45 WBC RBC Hgb Hct MCV MCH MCHC RDW Plt Count MPV Neutrophils % Lymphocytes % PT with INR INR PTT (Actin FS) VBG pH POC VBG pCO2 POC VBG pO2 Mixed VBG HCO3 Sodium Potassium Chloride Carbon Dioxide Anion Gap BUN Creatinine Creat Clearance w eGFR Random Glucose Lactic Acid Calcium Total Bilirubin AST ALT Alkaline Phosphatase Creatine Kinase Cancelled Troponin I Cancelled Cancelled B-Natriuretic Peptide Cancelled Total Protein Albumin Urine Color Urine Appearance Urine pH Ur Specific [place] Urine Protein Urine Glucose (UA) Urine Ketones Urine Blood Urine Nitrite Urine Bilirubin Urine Urobilinogen Ur Leukocyte Esterase Urine WBC (Auto) Urine RBC (Auto) Ur Epithelial Cells Urine Bacteria Hyaline Casts 11/01/17 23:44 WBC RBC Hgb Hct MCV MCH MCHC RDW Plt Count MPV Neutrophils % Lymphocytes % PT with INR INR PTT (Actin FS) VBG pH POC VBG pCO2 POC VBG pO2 Mixed VBG HCO3 Sodium Potassium Chloride Carbon Dioxide Anion Gap BUN Creatinine Creat Clearance w eGFR Random Glucose Lactic Acid Calcium Total Bilirubin AST ALT Alkaline Phosphatase Creatine Kinase Troponin I B-Natriuretic Peptide Total Protein Albumin Urine Color Cand[place] Urine Appearance Cloudy Urine pH 5.0 Ur Specific [place] 1.017 Urine Protein 2+ H Urine Glucose (UA) Negative Urine Ketones 1+ H Urine Blood 3+ H Urine Nitrite Negative Urine Bilirubin Negative Urine Urobilinogen Negative Ur Leukocyte Esterase 2+ H Urine WBC (Auto) 721 Urine RBC (Auto) 3745 Ur Epithelial Cells Rare Urine Bacteria Many Hyaline Casts 14 Current Medications Aspirin (Asa -) 81 mg PO ASDIR [facility] Bethanechol Chloride (Urecholine -) 25 mg PO BID [facility] Diazepam (Valium -) 5 mg PO HS [facility] Heparin Sodium (Porcine) (Heparin -) 5,000 unit SQ Q8H-IV [facility] Sodium Chloride (Normal Saline -) 1,000 mls @ 75 mls/hr IV ASDIR [facility] Stop: 11/03/17 13:04 Last Admin: 11/02/17 00:53 Dose: 75 mls/hr Lactobacillus Acidophilus (Bacid -) cap PO DAILY [facility] Metoprolol Tartrate (Lopressor -) 50 mg PO BID [facility] Oxycodone/Acetaminophen (Percocet 5/325 -) 1 combo PO HS [facility] Ranitidine HCl (Zantac -) 150 mg PO BID [facility] ASSESSMENT/PLAN: 87 year old female with a history of recurrent UTIs, hypertension, HLD, c. diff s/p ileostomy presented to the hospital for SOB, weakness, cough, congestion and fever is admitted for the treatment of sepsis 2/2 UTI and possible CHF. #Sepsis 2/2 UTI: patient's UA is positive and she has symptoms suggestive of UTI in addition to a positive history -f/u blood and urine cultures -Lactic acid 1.6 -levaquin given in ED -ceftriaxone/azithromycin coverage for both UTI and chest process -urology consult Dr. Davies appreciated -continue home bethanechol -monitor BP #Chest Congestion: possible new onset CHF? -echocardiogram ordered -lasix given in ED, hold lasix for now -f/u EKG in AM #MANUEL: could be CKD given previous admissions with similar creatinine, could also be prerenal -urine lytes -calculate FeNa #Hypertension: patient's BP was 140/70 in ED -continue home metoprolol tartrate 50 BID #Hyperlipidemia: not an acute issue -patient is not on statin as per home medications, but patient is on aspirin #Ileostomy: is not causing any acute issue -pain controlwiht percocet 1 combo 5/325 HS, as per home regimen FEN No standing fluids replete lytes in AM Sodium controlled diet Prophylaxis heparin prophylaxis subq 5000 tid Disposition -admit to med surg Visit type - Emergency Visit Emergency Visit: Yes Care time: The patient presented to the Emergency Department on the above date and was hospitalized for further evaluation of their emergent condition. - New Patient This patient is new to me today: Yes Date on this admission: 11/02/17 - Critical Care Critical Care patient: No Hospitalist Screening - Colonoscopy Questionnaire Colonoscopy Questionnaire: Colonoscopy Questionnaire - Patient: 50 - 75 years old and never had a screening colonoscopy: Unknown History of colon or rectal polyps, or CA: Unknown History of IBD, Crohn's disease or UC: Unknown History of abdominal radiation therapy as a child: Unknown - Relative: 1 with colon or rectal CA, or polyps at age 60 or younger: Unknown Colon or rectal CA diagnosed at age 45 or younger: Unknown Multiple relatives with colon or rectal CA: Unknown - Outcome: Screening Result: Negative Screen
[2017-11-02] MEDS ORDERED: SODIUM CHLORIDE 1,000 ML IV SCH (01:15)
--- NOTE | 2017-11-02 01:26 | PDOC ---
*Physical Exam - Vital Signs Last Vital Signs Temp Pulse Resp BP Pulse Ox 100.6 F H 120 H 26 H 140/70 90 L 11/02/17 01:00 11/01/17 21:41 11/01/17 21:41 11/01/17 21:41 11/01/17 21:41 - Physical Exam General Appearance: Yes: Nourished HEENT: positive: Normal Voice Neck: positive: Supple Respiratory/Chest: positive: Crackles Cardiovascular: positive: Tachycardia Female Pelvic Exam: positive: normal external exam Gastrointestinal/Abdominal: positive: Normal Bowel Sounds, Flat Musculoskeletal: positive: Normal Inspection Extremity: positive: Normal Inspection Integumentary: positive: Dry, Warm Neurologic: positive: Fully Oriented, Alert Heart Score/ECG Review - Electrocardiogram EKG: Normal - Age Age: >/= 65 - Risk Factors Based on the list above the patient has:: 1-2 risk factors - Troponin Troponin: </= normal limit - ECG Intrepretation Rhythm: Regular Rhythm - ECG Impressions Tachycardia: Sinus ED Treatment Course - LABORATORY CBC & Chemistry Diagram: 11/01/17 22:45 11/01/17 22:45 - ADDITIONAL ORDERS Additional order review: Laboratory Results 11/01/17 11/01/17 11/01/17 23:44 22:45 22:45 PT with INR INR PTT (Actin FS) VBG pH POC VBG pCO2 POC VBG pO2 Mixed VBG HCO3 Sodium Potassium Chloride Carbon Dioxide Anion Gap BUN Creatinine Creat Clearance w eGFR Random Glucose Lactic Acid Calcium Total Bilirubin AST ALT Alkaline Phosphatase Creatine Kinase Cancelled Troponin I Cancelled B-Natriuretic Peptide Cancelled Total Protein Albumin Urine Color Candi Urine Appearance Cloudy Urine pH 5.0 Ur Specific [place] 1.017 Urine Protein 2+ H Urine Glucose (UA) Negative Urine Ketones 1+ H Urine Blood 3+ H Urine Nitrite Negative Urine Bilirubin Negative Urine Urobilinogen Negative Ur Leukocyte Esterase 2+ H Urine WBC (Auto) 721 Urine RBC (Auto) 3745 Ur Epithelial Cells Rare Urine Bacteria Many Hyaline Casts 14 11/01/17 11/01/17 11/01/17 22:45 22:45 22:45 PT with INR INR PTT (Actin FS) 32.9 VBG pH POC VBG pCO2 POC VBG pO2 Mixed VBG HCO3 Sodium Potassium Chloride Carbon Dioxide Anion Gap BUN Creatinine Creat Clearance w eGFR Random Glucose Lactic Acid 1.6 Calcium Total Bilirubin AST ALT Alkaline Phosphatase Creatine Kinase Troponin I Cancelled B-Natriuretic Peptide Total Protein Albumin Urine Color Urine Appearance Urine pH Ur Specific [place] Urine Protein Urine Glucose (UA) Urine Ketones Urine Blood Urine Nitrite Urine Bilirubin Urine Urobilinogen Ur Leukocyte Esterase Urine WBC (Auto) Urine RBC (Auto) Ur Epithelial Cells Urine Bacteria Hyaline Casts 11/01/17 11/01/17 11/01/17 22:45 22:45 22:45 PT with INR 11.20 INR 0.99 PTT (Actin FS) VBG pH 7.36 POC VBG pCO2 49.4 POC VBG pO2 31.0 Mixed VBG HCO3 27.4 H Sodium 138 Potassium 4.8 Chloride 100 Carbon Dioxide 27 Anion Gap 11 BUN 25 H Creatinine 1.3 H Creat Clearance w eGFR 38.66 Random Glucose 153 H Lactic Acid Calcium 9.4 Total Bilirubin 0.6 D AST 18 ALT 14 Alkaline Phosphatase 107 Creatine Kinase 36 Troponin I < 0.02 B-Natriuretic Peptide 3811.11 H Total Protein 6.8 Albumin 3.7 Urine Color Urine Appearance Urine pH Ur Specific [place] Urine Protein Urine Glucose (UA) Urine Ketones Urine Blood Urine Nitrite Urine Bilirubin Urine Urobilinogen Ur Leukocyte Esterase Urine WBC (Auto) Urine RBC (Auto) Ur Epithelial Cells Urine Bacteria Hyaline Casts 11/01/17 22:45 RBC 4.03 MCV 110.9 H MCHC 32.2 RDW 15.2 MPV 8.7 Neutrophils % No Result Required. Lymphocytes % No Result Required. - Medications Given in the ED: ED Medications Discontinued Medications Generic Name Dose Route Start Last Admin Trade Name Freq PRN Reason Stop Dose Admin Acetaminophen 1,000 mg 11/01/17 23:24 11/01/17 23:44 Ofirmev Injection - IVPB 11/01/17 23:25 1,000 mg ONCE ONE Administration Sodium Chloride 500 mls @ 500 mls/hr 11/01/17 23:31 11/01/17 23:44 Normal Saline - IV 11/02/17 00:30 500 mls/hr ASDIR STA Administration *DC/Admit/Observation/Transfer Diagnosis at time of Disposition: Cough UTI (urinary tract infection) Qualifiers: Urinary tract infection type: acute cystitis Hematuria presence: without hematuria Qualified Code(s): N30.00 - Acute cystitis without hematuria Chronic back pain Qualifiers: Back pain location: back pain in unspecified location Back pain laterality: unspecified Qualified Code(s): M54.9 - Dorsalgia, unspecified Fever Qualifiers: Fever type: due to other condition Qualified Code(s): R50.81 - Fever presenting with conditions classified elsewhere - Discharge Dispostion Admit: Yes - Referrals - Patient Instructions - Post Discharge Activity
[2017-11-02] MEDS ORDERED: FUROSEMIDE 40 MG/4 ML INJECTABLE VIAL ONE (01:57)
[2017-11-02] MEDS ORDERED: HEPARIN NA (PORCINE) 5,000 UNITS/ML 1ML VIAL SQ SCH (02:00)
[2017-11-02] MEDS ORDERED: ASPIRIN 81 MG CHEWABLE TABLETS PO SCH (02:15)
[2017-11-02] MEDS ORDERED: AZITHROMYCIN IVPB 500 MG in DEXTROSE 5%-WATER - 250 ML IVPB ONE (02:16)
[2017-11-02] MEDS ORDERED: HEPARIN NA (PORCINE) 5,000 UNITS/ML 1ML VIAL ONE (02:24)
[2017-11-02] MEDS ORDERED: ASPIRIN 81 MG CHEWABLE TABLETS ONE (02:24)
[2017-11-02] MEDS ORDERED: AZITHROMYCIN IVPB 250 ML IVPB ONE (02:28)
[2017-11-02 08:19] LABS: HEMATOCRIT 38.9 % (32.4-45.2); HEMOGLOBIN 12.3 GM/dL (10.7-15.3); MCH 35.2 pg (25.7-33.7); MCHC 31.7 g/dl (32.0-36.0); MEAN CELL VOLUME 111.1 fl (80-96); MEAN PLT VOLUME 7.8 fl (7.5-11.1); PLATELET COUNT 153 K/MM3 (134-434); RDW 15.1 % (11.6-15.6); WHITE BLOOD COUNT 9.8 K/mm3 (4.0-10.0)
[2017-11-02 08:29] LABS: ANION GAP 7 (8-16); BLOOD UREA NITROGEN 25 mg/dL (7-18); CALCIUM 8.2 mg/dL (8.5-10.1); CHLORIDE 105 mmol/L (98-107); CO2 26 mmol/L (21-32); GLUCOSE,RANDOM 98 mg/dL (74-106); SODIUM 138 mmol/L (136-145)
[2017-11-02 08:30] LABS: CREATININE 1.2 mg/dL (0.55-1.02)
[2017-11-02 09:13] LABS: POTASSIUM 5.4 mmol/L (3.5-5.1)
[2017-11-02] MEDS ORDERED: CEFTRIAXONE IN IS-OSM DEXTROSE 2 GM/50 ML BAG IVPB SCH (10:00)
[2017-11-02] MEDS: HEPARIN NA (PORCINE) 5,000 UNITS/ML 1ML VIAL SQ SCH ×3 (10:09→21:07)
[2017-11-02] MEDS: BETHANECHOL CHLORIDE 25 MG TABLET PO SCH ×2 (10:10→21:08)
[2017-11-02] MEDS: METOPROLOL TARTRATE 50 MG TABLET (FP) PO SCH ×2 (10:10→21:08)
[2017-11-02] MEDS: ASPIRIN 81 MG CHEWABLE TABLETS PO SCH (10:10)
[2017-11-02] MEDS: RANITIDINE HCL 150 MG TABLET (FP) PO SCH ×2 (10:10→21:08)
[2017-11-02] MEDS: LACTOBACILLUS ACIDOPHILUS 1 CAP PO SCH (10:10)
[2017-11-02] MEDS ORDERED: CEFTRIAXONE 2 GM in DEXTROSE 5%-WATER - 100 ML IVPB SCH (11:30)
[2017-11-02] MEDS: ONDANSETRON 4 MG/2 ML VIAL IVPUSH PRN (12:01)
[2017-11-02] MEDS: CEFTRIAXONE 2 GM in DEXTROSE 5%-WATER - 100 ML IVPB SCH (13:16)
--- NOTE | 2017-11-02 13:18 | EKG ---
Test Reason : Blood Pressure : / mmHG Vent. Rate : 116 BPM Atrial Rate : 116 BPM P-R Int : 188 ms QRS Dur : 076 ms QT Int : 320 ms P-R-T Axes : 075 054 057 degrees QTc Int : 444 ms SINUS TACHYCARDIA OTHERWISE NORMAL ECG WHEN COMPARED WITH ECG OF 18-MAY-2017 17:01, VENT. RATE HAS INCREASED BY 41 BPM Confirmed by MALIK REYNOLDS MD ([id number]) on 11/02/2017 1:18:02 PM Referred By: Confirmed By:MALIK REYNOLDS MD
[2017-11-02 13:45] LABS: MAGNESIUM 2.2 mg/dL (1.8-2.4)
--- NOTE | 2017-11-02 14:45 | PN ---
Progress Note, Physician Chief Complaint: Ms Lopez complains of generalized muscle aches. No cp or sob. nausea resolved, asking for food. - Current Medication List Current Medications: Active Medications Acetaminophen (Tylenol -) 325 mg PO [facility] Aspirin (Asa -) 81 mg PO DAILY [facility] Last Admin: 11/02/17 10:10 Dose: 81 mg Bethanechol Chloride (Urecholine -) 25 mg PO BID [facility] Last Admin: 11/02/17 10:10 Dose: 25 mg Diazepam (Valium -) 5 mg PO [facility] Heparin Sodium (Porcine) (Heparin -) 5,000 unit SQ TID [facility] Last Admin: 11/02/17 13:16 Dose: 5,000 unit Sodium Chloride (Normal Saline -) 1,000 mls @ 75 mls/hr IV ASDIR [facility] Stop: 11/03/17 13:04 Last Admin: 11/02/17 00:53 Dose: 75 mls/hr Ceftriaxone Sodium 2 gm/ (Dextrose) 100 mls @ 200 mls/hr IVPB DAILY [facility] Last Admin: 11/02/17 13:16 Dose: 200 mls/hr Lactobacillus Acidophilus (Bacid -) 1 cap PO DAILY [facility] Last Admin: 11/02/17 10:10 Dose: 1 cap Metoprolol Tartrate (Lopressor -) 50 mg PO BID [facility] Last Admin: 11/02/17 10:10 Dose: 50 mg Ondansetron HCl (Zofran Injection) 4 mg IVPUSH Q4H PRN PRN Reason: NAUSEA AND/OR VOMITING Last Admin: 11/02/17 12:01 Dose: 4 mg Oxycodone HCl (Roxicodone -) 5 mg PO [facility] Ranitidine HCl (Zantac -) 150 mg PO BID [facility] Last Admin: 11/02/17 10:10 Dose: 150 mg - Objective Vital Signs: Vital Signs Temperature 36.4 C 11/02/17 10:00 Pulse Rate 104 H 11/02/17 10:00 Respiratory Rate 18 11/02/17 10:00 Blood Pressure 124/55 11/02/17 10:00 O2 Sat by Pulse Oximetry (%) 100 11/02/17 09:00 Constitutional: Yes: Well Nourished, No Distress, Calm Cardiovascular: Yes: Regular Rate and Rhythm. No: Gallop, Murmur, Rub Respiratory: Yes: Regular, CTA Bilaterally. No: Rales, Rhonchi, Wheezes Gastrointestinal: Yes: Normal Bowel Sounds, Soft. No: Distention, Tenderness Extremities: Yes: WNL Edema: No Labs: CBC, BMP 11/02/17 06:25 INR, PTT INR 0.99 (0.82-1.09) 11/01/17 22:45 Problem List - Problems (1) UTI (urinary tract infection) Assessment/Plan: -urinalysis consistent with UTI -history of recurrent UTI's but all cultures negative in chart -continue rocephin -await culture results Code(s): N39.0 - URINARY TRACT INFECTION, SITE NOT SPECIFIED Qualifiers: Urinary tract infection type: acute cystitis Hematuria presence: with hematuria Qualified Code(s): N30.01 - Acute cystitis with hematuria (2) Sepsis Assessment/Plan: -improving -continue IV antibiotics and IVF Code(s): A41.9 - SEPSIS, UNSPECIFIED ORGANISM (3) Hyperkalemia Assessment/Plan: -unclear cause -will recheck -may need to stop heparin -if remains elevated, give kayexalate Code(s): E87.5 - HYPERKALEMIA (4) CKD (chronic kidney disease) Assessment/Plan: -at baseline Code(s): N18.9 - CHRONIC KIDNEY DISEASE, UNSPECIFIED (5) HTN (hypertension) Assessment/Plan: -well controlled -continue current management Code(s): I10 - ESSENTIAL (PRIMARY) HYPERTENSION (6) Paroxysmal a-fib Assessment/Plan: -in sinus rhythm -not on anticoagulation Code(s): I48.0 - PAROXYSMAL ATRIAL FIBRILLATION
[2017-11-02 15:00] LABS: ANION GAP 11 (8-16); BLOOD UREA NITROGEN 26 mg/dL (7-18); CALCIUM 8.3 mg/dL (8.5-10.1); CHLORIDE 105 mmol/L (98-107); CO2 26 mmol/L (21-32); CREATININE 1.4 mg/dL (0.55-1.02); GLUCOSE,RANDOM 93 mg/dL (74-106); POTASSIUM 4.7 mmol/L (3.5-5.1); SODIUM 142 mmol/L (136-145)
[2017-11-02] MEDS: oxyCODONE HCL 5 MG TABLET PO SCH (21:08)
[2017-11-02] MEDS: ACETAMINOPHEN 325 MG TABLET (FP) PO SCH (21:08)
[2017-11-02] MEDS: diazePAM 5 MG TABLET PO SCH (21:08)
[2017-11-03] MEDS: SODIUM CHLORIDE 1,000 ML IV SCH (05:36)
[2017-11-03] MEDS: HEPARIN NA (PORCINE) 5,000 UNITS/ML 1ML VIAL SQ SCH ×3 (05:40→23:00)
[2017-11-03 07:44] LABS: HEMATOCRIT 42.8 % (32.4-45.2); HEMOGLOBIN 13.2 GM/dL (10.7-15.3); MCH 35.4 pg (25.7-33.7); MCHC 30.9 g/dl (32.0-36.0); MEAN CELL VOLUME 114.7 fl (80-96); MEAN PLT VOLUME 9.4 fl (7.5-11.1); PLATELET COUNT 153 K/MM3 (134-434); RBC 3.73 M/mm3 (3.60-5.2); RDW 15.6 % (11.6-15.6)
[2017-11-03 08:21] LABS: ANION GAP 12 (8-16); BLOOD UREA NITROGEN 21 mg/dL (7-18); CALCIUM 8.6 mg/dL (8.5-10.1); CHLORIDE 107 mmol/L (98-107); CO2 23 mmol/L (21-32); CREATININE 1.2 mg/dL (0.55-1.02); GLUCOSE,RANDOM 93 mg/dL (74-106); PHOSPHOROUS 3.5 mg/dL (2.5-4.9); SODIUM 142 mmol/L (136-145)
[2017-11-03 09:23] LABS: POTASSIUM 4.9 mmol/L (3.5-5.1)
[2017-11-03 09:44] LABS: MACROCYTOSIS 3+; PLATELET ESTIMATE NORMAL
[2017-11-03] MEDS ORDERED: CEFTRIAXONE 2 GM in DEXTROSE 5%-WATER - 100 ML IVPB SCH (10:00)
[2017-11-03] MEDS ORDERED: PT OWN MED DRAWER 7, Y5N ONE (10:07)
[2017-11-03] MEDS: ASPIRIN 81 MG CHEWABLE TABLETS PO SCH (10:09)
[2017-11-03] MEDS: BETHANECHOL CHLORIDE 25 MG TABLET PO SCH ×2 (10:09→22:59)
[2017-11-03] MEDS: RANITIDINE HCL 150 MG TABLET (FP) PO SCH ×2 (10:09→22:59)
[2017-11-03] MEDS: METOPROLOL TARTRATE 50 MG TABLET (FP) PO SCH ×2 (10:09→22:59)
[2017-11-03] MEDS: LACTOBACILLUS ACIDOPHILUS 1 CAP PO SCH (10:09)
[2017-11-03] MEDS: CEFTRIAXONE 2 GM in DEXTROSE 5%-WATER - 100 ML IVPB SCH (10:47)
--- NOTE | 2017-11-03 10:54 | PN ---
Progress Note, Physician Chief Complaint: Ms Lopez is without complaint. No cp, sob, n/v - Current Medication List Current Medications: Active Medications Acetaminophen (Tylenol -) 325 mg PO HS [facility] Last Admin: 11/02/17 21:08 Dose: 325 mg Aspirin (Asa -) 81 mg PO DAILY [facility] Last Admin: 11/03/17 10:09 Dose: 81 mg Bethanechol Chloride (Urecholine -) 25 mg PO BID [facility] Last Admin: 11/03/17 10:09 Dose: 25 mg Diazepam (Valium -) 5 mg PO HS [facility] Last Admin: 11/02/17 21:08 Dose: 5 mg Heparin Sodium (Porcine) (Heparin -) 5,000 unit SQ TID [facility] Last Admin: 11/03/17 05:40 Dose: 5,000 unit Sodium Chloride (Normal Saline -) 1,000 mls @ 75 mls/hr IV ASDIR [facility] Stop: 11/03/17 13:04 Last Admin: 11/03/17 05:36 Dose: Not Given Ceftriaxone Sodium 2 gm/ (Dextrose) 100 mls @ 200 mls/hr IVPB DAILY [facility] Last Admin: 11/03/17 10:47 Dose: 200 mls/hr Lactobacillus Acidophilus (Bacid -) 1 cap PO DAILY [facility] Last Admin: 11/03/17 10:09 Dose: 1 cap Metoprolol Tartrate (Lopressor -) 50 mg PO BID [facility] Last Admin: 11/03/17 10:09 Dose: 50 mg Ondansetron HCl (Zofran Injection) 4 mg IVPUSH Q4H PRN PRN Reason: NAUSEA AND/OR VOMITING Last Admin: 11/02/17 12:01 Dose: 4 mg Oxycodone HCl (Roxicodone -) 5 mg PO HS [facility] Last Admin: 11/02/17 21:08 Dose: 5 mg Ranitidine HCl (Zantac -) 150 mg PO BID [facility] Last Admin: 11/03/17 10:09 Dose: 150 mg - Objective Vital Signs: Vital Signs Temperature 37.2 C 11/03/17 10:00 Pulse Rate 95 H 11/03/17 10:00 Respiratory Rate 20 11/03/17 10:00 Blood Pressure 124/48 11/03/17 10:00 O2 Sat by Pulse Oximetry (%) 96 11/02/17 21:00 Constitutional: Yes: Well Nourished, No Distress, Calm Cardiovascular: Yes: Regular Rate and Rhythm. No: Gallop, Murmur, Rub Respiratory: Yes: Regular, CTA Bilaterally. No: Rales, Rhonchi, Wheezes Gastrointestinal: Yes: Normal Bowel Sounds, Soft. No: Distention, Tenderness Extremities: Yes: WNL Edema: No Labs: CBC, BMP 11/03/17 06:30 11/03/17 06:30 INR, PTT INR 0.99 (0.82-1.09) 11/01/17 22:45 Problem List - Problems (1) UTI (urinary tract infection) Code(s): N39.0 - URINARY TRACT INFECTION, SITE NOT SPECIFIED Qualifiers: Urinary tract infection type: acute cystitis Hematuria presence: with hematuria Qualified Code(s): N30.01 - Acute cystitis with hematuria (2) Sepsis Code(s): A41.9 - SEPSIS, UNSPECIFIED ORGANISM (3) Hyperkalemia Code(s): E87.5 - HYPERKALEMIA (4) CKD (chronic kidney disease) Code(s): N18.9 - CHRONIC KIDNEY DISEASE, UNSPECIFIED (5) HTN (hypertension) Code(s): I10 - ESSENTIAL (PRIMARY) HYPERTENSION (6) Paroxysmal a-fib Code(s): I48.0 - PAROXYSMAL ATRIAL FIBRILLATION Assessment/Plan (1) UTI (urinary tract infection) Assessment/Plan: -culture growing gram negative rods -continue rocephin -patient much improved -await culture results Code(s): N39.0 - URINARY TRACT INFECTION, SITE NOT SPECIFIED Qualifiers: Urinary tract infection type: acute cystitis Hematuria presence: with hematuria Qualified Code(s): N30.01 - Acute cystitis with hematuria (2) Sepsis Assessment/Plan: -resolved -stop IVF -continue antibiotics Code(s): A41.9 - SEPSIS, UNSPECIFIED ORGANISM (3) Hyperkalemia Assessment/Plan: -resolved Code(s): E87.5 - HYPERKALEMIA (4) CKD (chronic kidney disease) Assessment/Plan: -at baseline Code(s): N18.9 - CHRONIC KIDNEY DISEASE, UNSPECIFIED (5) HTN (hypertension) Assessment/Plan: -well controlled -continue current management Code(s): I10 - ESSENTIAL (PRIMARY) HYPERTENSION (6) Paroxysmal a-fib Assessment/Plan: -in sinus rhythm -not on anticoagulation Code(s): I48.0 - PAROXYSMAL ATRIAL FIBRILLATION
--- NOTE | 2017-11-03 13:56 | CON.GU ---
Consult Consult Specialty:: Urology Reason for Consultation:: UTI - History of Present Illness Chief Complaint: Malaise - History Source History Provided By: Patient, Medical Record - Past Medical History [employer]: Yes: Other (anxiety) Cardio/Vascular: Yes: HTN, Other (SVT) Gastrointestinal: Yes: GERD Infectious Disease: Yes: C-Diff Musculoskeletal: Yes: Chronic low back pain, Osteoarthritis - Past Surgical History Past Surgical History: Yes: Colostomy, Joint Replacement - Alcohol/Substance Use Hx Alcohol Use: No History of Substance Use: reports: None - Smoking History Smoking history: Former smoker Have you smoked in the past 12 months: No Aproximately how many cigarettes per day: 0 If you are a former smoker, when did you quit?: many years ago - Social History ADL: Family Assistance Home Medications - Allergies Allergies/Adverse Reactions: Allergies Allergy/AdvReac Type Severity Reaction Status Date / Time No Known Drug Allergies Allergy Verified 05/18/17 19:10 - Home Medications Home Medications: Ambulatory Orders Aspirin [ASA -] 81 mg PO ASDIR 05/18/17 Bethanechol Chloride [Bethanechol Chloride -] 25 mg PO BID 05/18/17 Diazepam [Valium] 5 mg PO HS 05/18/17 Metoprolol Tartrate [Lopressor -] 50 mg PO BID 05/18/17 Oxycodone HCl/Acetaminophen [Oxycodone-Acetaminophen 5-325] 1 each PO HS Ranitidine [Zantac -] 150 mg PO BID 05/18/17 Lactobacillus Acidophilus [Bacid -] 1 tab PO DAILY #7 tab 05/20/17 Family Disease History - Family Disease History Family Disease History: Diabetes: Mother Physical Exam- Vital Signs: Vital Signs Temperature 99 F 11/03/17 10:00 Pulse Rate 95 H 11/03/17 10:00 Respiratory Rate 20 11/03/17 10:00 Blood Pressure 124/48 11/03/17 10:00 O2 Sat by Pulse Oximetry (%) 100 11/03/17 09:00 Labs: CBC, BMP 11/03/17 06:30 11/03/17 06:30 Problem List - Problems (1) UTI (urinary tract infection) Assessment/Plan: 87 yo female w uti no hx calculi currently improving on abx regimen. Ordered ervin to r/o stone hydro Code(s): N39.0 - URINARY TRACT INFECTION, SITE NOT SPECIFIED Qualifiers: Urinary tract infection type: acute cystitis Hematuria presence: with hematuria Qualified Code(s): N30.01 - Acute cystitis with hematuria
[2017-11-03] MEDS: ACETAMINOPHEN 325 MG TABLET (FP) PO SCH (22:59)
[2017-11-03] MEDS: diazePAM 5 MG TABLET PO SCH (22:59)
[2017-11-03] MEDS: oxyCODONE HCL 5 MG TABLET PO SCH (23:01)
[2017-11-04] MEDS: HEPARIN NA (PORCINE) 5,000 UNITS/ML 1ML VIAL SQ SCH ×3 (06:34→22:00)
[2017-11-04 10:00] LABS: HEMATOCRIT 41.2 % (32.4-45.2); HEMOGLOBIN 12.6 GM/dL (10.7-15.3); MCHC 30.6 g/dl (32.0-36.0); MEAN CELL VOLUME 114.4 fl (80-96); MEAN PLT VOLUME 8.8 fl (7.5-11.1); PLATELET COUNT 185 K/MM3 (134-434); RDW 15.4 % (11.6-15.6); WHITE BLOOD COUNT 10.3 K/mm3 (4.0-10.0)
[2017-11-04] MEDS ORDERED: PT OWN MED DRAWER 7, Y5N ONE (10:16)
[2017-11-04] MEDS: LACTOBACILLUS ACIDOPHILUS 1 CAP PO SCH (10:23)
[2017-11-04] MEDS: RANITIDINE HCL 150 MG TABLET (FP) PO SCH ×2 (10:23→22:00)
[2017-11-04] MEDS: METOPROLOL TARTRATE 50 MG TABLET (FP) PO SCH ×2 (10:23→22:00)
[2017-11-04] MEDS: CEFTRIAXONE 2 GM in DEXTROSE 5%-WATER - 100 ML IVPB SCH (10:23)
[2017-11-04] MEDS: ASPIRIN 81 MG CHEWABLE TABLETS PO SCH (10:23)
[2017-11-04] MEDS: BETHANECHOL CHLORIDE 25 MG TABLET PO SCH ×2 (10:23→22:00)
[2017-11-04 10:35] LABS: ANION GAP 8 (8-16); BLOOD UREA NITROGEN 23 mg/dL (7-18); CALCIUM 8.6 mg/dL (8.5-10.1); CHLORIDE 105 mmol/L (98-107); CO2 28 mmol/L (21-32); CREATININE 1.2 mg/dL (0.55-1.02); GLUCOSE,RANDOM 110 mg/dL (74-106); PHOSPHOROUS 3.1 mg/dL (2.5-4.9); POTASSIUM 4.6 mmol/L (3.5-5.1); SODIUM 141 mmol/L (136-145)
[2017-11-04 11:51] LABS: ANISOCYTOSIS 1+; MACROCYTOSIS 1+; PLATELET ESTIMATE NORMAL
[2017-11-04] MEDS ORDERED: LORazepam 0.5 MG TABLET PO PRN (14:14)
--- NOTE | 2017-11-04 16:45 | PN ---
Progress Note, Physician Chief Complaint: Ms Lopez is without complaint. No cp, sob, n/v - Current Medication List Current Medications: Active Medications Acetaminophen (Tylenol -) 325 mg PO HS [facility] Last Admin: 11/03/17 22:59 Dose: 325 mg Aspirin (Asa -) 81 mg PO DAILY [facility] Last Admin: 11/04/17 10:23 Dose: 81 mg Bethanechol Chloride (Urecholine -) 25 mg PO BID [facility] Last Admin: 11/04/17 10:23 Dose: 25 mg Diazepam (Valium -) 5 mg PO HS [facility] Last Admin: 11/03/17 22:59 Dose: 5 mg Heparin Sodium (Porcine) (Heparin -) 5,000 unit SQ TID [facility] Last Admin: 11/04/17 14:53 Dose: 5,000 unit Ceftriaxone Sodium 2 gm/ (Dextrose) 100 mls @ 200 mls/hr IVPB DAILY [facility] Last Admin: 11/04/17 10:23 Dose: 200 mls/hr Lactobacillus Acidophilus (Bacid -) 1 cap PO DAILY [facility] Last Admin: 11/04/17 10:23 Dose: 1 cap Lorazepam (Ativan -) 0.5 mg PO TID PRN PRN Reason: ANXIETY Last Admin: 11/04/17 14:54 Dose: 0.5 mg Metoprolol Tartrate (Lopressor -) 50 mg PO BID [facility] Last Admin: 11/04/17 10:23 Dose: 50 mg Nystatin (Mycostatin Ointment -) 1 applic TP BID [facility] Ondansetron HCl (Zofran Injection) 4 mg IVPUSH Q4H PRN PRN Reason: NAUSEA AND/OR VOMITING Last Admin: 11/02/17 12:01 Dose: 4 mg Oxycodone HCl (Roxicodone -) 5 mg PO [facility] Last Admin: 11/03/17 23:01 Dose: 5 mg Ranitidine HCl (Zantac -) 150 mg PO BID [facility] Last Admin: 11/04/17 10:23 Dose: 150 mg - Objective Vital Signs: Vital Signs Temperature 36.6 C 11/04/17 15:13 Pulse Rate 85 11/04/17 15:13 Respiratory Rate 20 11/04/17 15:13 Blood Pressure 123/57 11/04/17 15:13 O2 Sat by Pulse Oximetry (%) 100 11/04/17 10:17 Constitutional: Yes: Well Nourished, No Distress, Calm Cardiovascular: Yes: Regular Rate and Rhythm. No: Gallop, Murmur, Rub Respiratory: Yes: Regular, CTA Bilaterally. No: Rales, Rhonchi, Wheezes Gastrointestinal: Yes: Normal Bowel Sounds, Soft. No: Distention, Tenderness Extremities: Yes: WNL Edema: No Labs: CBC, BMP 11/04/17 09:30 11/04/17 09:20 INR, PTT INR 0.99 (0.82-1.09) 11/01/17 22:45 Problem List - Problems (1) UTI (urinary tract infection) Code(s): N39.0 - URINARY TRACT INFECTION, SITE NOT SPECIFIED Qualifiers: Urinary tract infection type: acute cystitis Hematuria presence: with hematuria Qualified Code(s): N30.01 - Acute cystitis with hematuria (2) Sepsis Code(s): A41.9 - SEPSIS, UNSPECIFIED ORGANISM (3) Hyperkalemia Code(s): E87.5 - HYPERKALEMIA (4) CKD (chronic kidney disease) Code(s): N18.9 - CHRONIC KIDNEY DISEASE, UNSPECIFIED (5) HTN (hypertension) Code(s): I10 - ESSENTIAL (PRIMARY) HYPERTENSION (6) Paroxysmal a-fib Code(s): I48.0 - PAROXYSMAL ATRIAL FIBRILLATION Assessment/Plan (1) UTI (urinary tract infection) Assessment/Plan: -culture growing gram klebsiella -continue rocephin Code(s): N39.0 - URINARY TRACT INFECTION, SITE NOT SPECIFIED Qualifiers: Urinary tract infection type: acute cystitis Hematuria presence: with hematuria Qualified Code(s): N30.01 - Acute cystitis with hematuria (2) Sepsis Assessment/Plan: -resolved -continue antibiotics Code(s): A41.9 - SEPSIS, UNSPECIFIED ORGANISM (3) Hyperkalemia Assessment/Plan: -resolved Code(s): E87.5 - HYPERKALEMIA (4) CKD (chronic kidney disease) Assessment/Plan: -at baseline Code(s): N18.9 - CHRONIC KIDNEY DISEASE, UNSPECIFIED (5) HTN (hypertension) Assessment/Plan: -well controlled -continue current management Code(s): I10 - ESSENTIAL (PRIMARY) HYPERTENSION (6) Paroxysmal a-fib Assessment/Plan: -in sinus rhythm -not on anticoagulation Code(s): I48.0 - PAROXYSMAL ATRIAL FIBRILLATION Dispo -patient complains of falls and back pain, will obtain x-ray -daughter says patient is not falling at home -discussed possible SNF placement, daughter declined -possible discharge tomorrow
[2017-11-04] MEDS: oxyCODONE HCL 5 MG TABLET PO SCH (22:00)
[2017-11-04] MEDS: ACETAMINOPHEN 325 MG TABLET (FP) PO SCH (22:00)
[2017-11-04] MEDS: diazePAM 5 MG TABLET PO SCH (22:00)
[2017-11-04] MEDS: NYSTATIN 100000 UNIT/GM TOPICAL OINTMENT 15 GM TUBE TP SCH (22:59)
[2017-11-05] MEDS: HEPARIN NA (PORCINE) 5,000 UNITS/ML 1ML VIAL SQ SCH ×2 (06:09→14:00)
[2017-11-05 08:28] LABS: HEMATOCRIT 39.2 % (32.4-45.2); HEMOGLOBIN 12.2 GM/dL (10.7-15.3); MCH 35.4 pg (25.7-33.7); MCHC 31.1 g/dl (32.0-36.0); MEAN CELL VOLUME 113.7 fl (80-96); MEAN PLT VOLUME 9.5 fl (7.5-11.1); PLATELET COUNT 173 K/MM3 (134-434); RBC 3.45 M/mm3 (3.60-5.2); RDW 15.2 % (11.6-15.6); WHITE BLOOD COUNT 10.2 K/mm3 (4.0-10.0)
[2017-11-05 09:09] LABS: CHLORIDE 104 mmol/L (98-107); POTASSIUM 4.3 mmol/L (3.5-5.1); SODIUM 141 mmol/L (136-145)
[2017-11-05] MEDS: NYSTATIN 100000 UNIT/GM TOPICAL OINTMENT 15 GM TUBE TP SCH ×2 (09:19→09:25)
[2017-11-05] MEDS ORDERED: PT OWN MED DRAWER 7, Y5N ONE (09:23)
[2017-11-05] MEDS: LACTOBACILLUS ACIDOPHILUS 1 CAP PO SCH (09:25)
[2017-11-05] MEDS: ASPIRIN 81 MG CHEWABLE TABLETS PO SCH (09:25)
[2017-11-05] MEDS: METOPROLOL TARTRATE 50 MG TABLET (FP) PO SCH (09:25)
[2017-11-05] MEDS: RANITIDINE HCL 150 MG TABLET (FP) PO SCH (09:26)
[2017-11-05] MEDS: BETHANECHOL CHLORIDE 25 MG TABLET PO SCH (09:26)
[2017-11-05] MEDS: CEFTRIAXONE 2 GM in DEXTROSE 5%-WATER - 100 ML IVPB SCH (09:26)
[2017-11-05 09:32] LABS: ANION GAP 7 (8-16); BLOOD UREA NITROGEN 21 mg/dL (7-18); CALCIUM 8.8 mg/dL (8.5-10.1); CO2 30 mmol/L (21-32); CREATININE 1.1 mg/dL (0.55-1.02); GLUCOSE,RANDOM 86 mg/dL (74-106); MAGNESIUM 2.1 mg/dL (1.8-2.4); PHOSPHOROUS 2.9 mg/dL (2.5-4.9)
[2017-11-05 09:59] LABS: MACROCYTOSIS 3+; PLATELET ESTIMATE NORMAL
[2017-11-05] MEDS: ONDANSETRON 4 MG/2 ML VIAL IVPUSH PRN (13:54)
--- NOTE | 2017-11-05 14:17 | DS ---
Physical Exam: SUBJECTIVE: Patient seen and examined. complains of generalized weakness. OBJECTIVE: Vital Signs Period Temp Pulse Resp BP Sys/Galan Pulse Ox Last 24 Hr 97.9 F-98.6 F 85-109 20-20 123-146/47-61 100-100 PHYSICAL EXAM GENERAL: The patient is awake, alert, in no acute distress. HEAD: Normal with no signs of trauma. LUNGS: Breath sounds equal, clear to auscultation bilaterally, no wheezes, no crackles, no accessory muscle use. HEART: Regular rate and rhythm, S1, S2 without murmur, rub or gallop. ABDOMEN: Soft, nontender, nondistended, normoactive bowel sounds, no guarding, no rebound, no hepatosplenomegaly, no masses. EXTREMITIES: 2+ pulses, warm, well-perfused, no edema. LABS Laboratory Results - last 24 hr 11/05/17 11/05/17 06:30 06:30 WBC 10.2 H RBC 3.45 L Hgb 12.2 Hct 39.2 MCV 113.7 H MCH 35.4 H MCHC 31.1 L RDW 15.2 Plt Count 173 MPV 9.5 Neutrophils % Diagram Clerk Neutrophils % (Manual) 86.0 H Band Neutrophils % 0.0 Lymphocytes % Diagram Clerk Lymphocytes % (Manual) 4.0 L D Monocytes % Diagram Clerk Monocytes % (Manual) 4 Eosinophils % Diagram Clerk Eosinophils % (Manual) 1.0 Basophils % Diagram Clerk Basophils % (Manual) 2.0 D Myelocytes % (Man) 1 D Promyelocytes % (Man) 0 Blast Cells % (Manual) 0 Nucleated RBC % 0 Metamyelocytes 0 Platelet Estimate Normal Macrocytosis 3+ Sodium 141 Potassium 4.3 Chloride 104 Carbon Dioxide 30 Anion Gap 7 L BUN 21 H Creatinine 1.1 H Random Glucose 86 Calcium 8.8 Phosphorus 2.9 Magnesium 2.1 HOSPITAL COURSE: Date of Admission:11/02/17 Date of Discharge: 11/05/17 87 year old female with a history of recurrent UTIs, hypertension, HLD, c. diff s/p ileostomy presented with one week history of cough and chest congestion, shortness of breath, chills, and nonbloody nausea/vomiting. She additionally reports dysuria and urinary frequency. She was found to have UTI and admitted for the treatment of sepsis 2/2 UTI. CXR was inconclusive for PNA. She was on Ceftriaxone in the hospital. Urine Culture was positive for Klebsiella that is sensitive to all gen cephalosporins. She is being discharged to complete the antibiotic course with Keflex. She should take lactobacillus with this. [facility] has also been requested and approved for home services. Minutes to complete discharge: 30 Discharge Summary Reason For Visit: URINARY TRACT INFECTION,FEVER,COUGH Current Active Problems Chronic back pain (Acute) Cough (Acute) Fever (Acute) Sepsis (Acute) UTI (urinary tract infection) (Acute) Condition: Fair - Instructions Referrals: Jose Diop MD [Primary Care Provider] - Disposition: [facility]/HOME HEALTH CARE - Home Medications Comprehensive Discharge Medication List: Ambulatory Orders Aspirin [ASA -] 81 mg PO ASDIR 05/18/17 Bethanechol Chloride [Bethanechol Chloride -] 25 mg PO BID 05/18/17 Diazepam [Valium] 5 mg PO HS 05/18/17 Metoprolol Tartrate [Lopressor -] 50 mg PO BID 05/18/17 Oxycodone HCl/Acetaminophen [Oxycodone-Acetaminophen 5-325] 1 each PO HS Ranitidine [Zantac -] 150 mg PO BID 05/18/17 Cephalexin [Keflex] 500 mg PO BID 5 Days #10 capsule 11/05/17 Lactobacillus Acidophilus [Bacid -] 1 tab PO DAILY #7 tab 11/05/17 Problem List - Problems (1) Chronic back pain Code(s): M54.9 - DORSALGIA, UNSPECIFIED; G89.29 - OTHER CHRONIC PAIN Qualifiers: Back pain location: back pain in unspecified location Back pain laterality : unspecified Qualified Code(s): M54.9 - Dorsalgia, unspecified; G89.29 - Other chronic pain; G89.29 - Other chronic pain (2) Sepsis Code(s): A41.9 - SEPSIS, UNSPECIFIED ORGANISM (3) UTI (urinary tract infection) Code(s): N39.0 - URINARY TRACT INFECTION, SITE NOT SPECIFIED Qualifiers: Urinary tract infection type: acute cystitis Hematuria presence: with hematuria Qualified Code(s): N30.01 - Acute cystitis with hematuria This patient is new to me today: Yes Date on this admission: 11/05/17 Emergency Visit: Yes ED Registration Date: 11/02/17 Care time: The patient presented to the Emergency Department on the above date and was hospitalized for further evaluation of their emergent condition. Critical Care patient: No - Discharge Referral Referred to [facility] No
[2017-11-05 15:47] VITALS: BP 142/76; PULSE 92; TEMP 98.9
== END 2017-11-05 16:26 | disposition home health service (06) | DRG 872 ==
LOC: JER 21:29 → J8W 11-02 01:26
PROVIDERS: ADMIT Internal Medicine; ATTEND Internal Medicine
DX: A41.9 Sepsis, unspecified organism (principal); N39.0 Urinary tract infection, site not specified; N17.9 Acute kidney failure, unspecified; E78.5 Hyperlipidemia, unspecified; F03.90 Unspecified dementia, unspecified severity, without behavioral disturbance, psychotic disturbance, mood disturbance, and anxiety; M54.9 Dorsalgia, unspecified; I48.0 Paroxysmal atrial fibrillation; E87.5 Hyperkalemia; K21.9 Gastro-esophageal reflux disease without esophagitis; I12.9 Hypertensive chronic kidney disease with stage 1 through stage 4 chronic kidney disease, or unspecified chronic kidney disease; N18.9 Chronic kidney disease, unspecified
CPT/HCPCS: 36415; 71045-TC-FY; 76775-TC; 80048; 80053; 81003; 81015; 82550; 82570; 82803; 83605; 83735; 83880; 84100; 84300; 84484; 85025; 85027; 85610; 85730; 87040; 87070; 87086; 87186; 87205; 87804; 93005; 93010; 97116-GP; 97161-GP; 99285-25; J0131; J1644; J7030

== ENCOUNTER 2017-11-06 11:46 | Inpatient (IN) | payer OTHER, MEDICARE ==
[2017-11-07 02:46] VITALS: BMI 21.3
[2017-11-21 15:05] VITALS: BP 111/64; PULSE 109; TEMP 98
== END 2017-11-21 15:38 | DRG 871 ==
LOC: JER 11:46 → JERBED 18:25 → OBSVTOIN 21:02 → J8W 23:54
PROVIDERS: ADMIT Specialist; ATTEND Specialist
PROC: 5A09357 Assistance with Respiratory Ventilation, Less than 24 Consecutive Hours, Continuous Positive Airway Pressure (ICD-10-PCS; 2017-11-14)
PROC: 0D748ZZ Dilation of Esophagogastric Junction, Via Natural or Artificial Opening Endoscopic (ICD-10-PCS; principal; 2017-11-16)
PROC: 0DB48ZX Excision of Esophagogastric Junction, Via Natural or Artificial Opening Endoscopic, Diagnostic (ICD-10-PCS; 2017-11-16)
PROC: 0DB68ZX Excision of Stomach, Via Natural or Artificial Opening Endoscopic, Diagnostic (ICD-10-PCS; 2017-11-16)
PROC: 0DD48ZX Extraction of Esophagogastric Junction, Via Natural or Artificial Opening Endoscopic, Diagnostic (ICD-10-PCS; 2017-11-16)
PROC: 0DD68ZX Extraction of Stomach, Via Natural or Artificial Opening Endoscopic, Diagnostic (ICD-10-PCS; 2017-11-16)
PROC: 0DD28ZX Extraction of Middle Esophagus, Via Natural or Artificial Opening Endoscopic, Diagnostic (ICD-10-PCS; 2017-11-16)
DX: A41.9 Sepsis, unspecified organism (principal); G93.41 Metabolic encephalopathy; J96.01 Acute respiratory failure with hypoxia; J96.02 Acute respiratory failure with hypercapnia; J69.0 Pneumonitis due to inhalation of food and vomit; N39.0 Urinary tract infection, site not specified; E87.2 Acidosis; I50.32 Chronic diastolic (congestive) heart failure; I13.10 Hypertensive heart and chronic kidney disease without heart failure, with stage 1 through stage 4 chronic kidney disease, or unspecified chronic kidney disease; I48.0 Paroxysmal atrial fibrillation; N18.3 Chronic kidney disease, stage 3 (moderate); K22.2 Esophageal obstruction; E78.5 Hyperlipidemia, unspecified; Z93.2 Ileostomy status; Z87.891 Personal history of nicotine dependence; Z90.49 Acquired absence of other specified parts of digestive tract; K21.9 Gastro-esophageal reflux disease without esophagitis; D45 Polycythemia vera; Z93.3 Colostomy status; F03.90 Unspecified dementia, unspecified severity, without behavioral disturbance, psychotic disturbance, mood disturbance, and anxiety; K62.4 Stenosis of anus and rectum; B37.3 Candidiasis of vulva and vagina; L25.9 Unspecified contact dermatitis, unspecified cause; D13.1 Benign neoplasm of stomach; K44.9 Diaphragmatic hernia without obstruction or gangrene; K29.60 Other gastritis without bleeding
CPT/HCPCS: 36415; 36600; 71045-TC-FY; 74220-TC-FY; 74230-TC-FY; 74240-TC-FY; 76775-TC; 80048; 80053; 81003; 81015; 82550; 82570; 82803; 83605; 83735; 83880; 84100; 84300; 84484; 85025; 85027; 85610; 87040; 87077; 87086; 92611-GN; 93005; 93010; 94640; 94660; 97116-GP; 97161-GP; 99284-25; G0378; J1644; J7030; J7620